=== PATIENT | male | born 1940 | race Hispanic/Latino ===

== ENCOUNTER 2016-09-04 11:35 | Inpatient (IN) | payer MEDICAID, MEDICARE ==
[2016-09-04] VITALS (7 sets, daily range): BP systolic 107–151; BP diastolic 46–97
[~2016-09-04] VITALS: Ht 165.1 cm; Wt 72.6 kg
[~2016-09-04 11:35] MED LIST: ACETAMINOPHEN650 M2 NGT; AMIODARONE HCL400 M1 GT; AMIODARONE50 MG/1 ML GT; ASCORBIC ACID500 M4 GT; BENADRYL25 M2 GT; CLONIDINE0.1 MG GT; COREG3.125 MG GT; DULCOLAX10 MG RECTAL; FOLIC ACID1 MG GT; LOSARTAN POTASS25 MG GT; MOM30 ML GT; NORCO 10-325 T1 EACH GT; NOVOLIN R100 UNIT/1 SUBQ; OMEPRAZOLE20 M2 GT; PROSCAR5 MG GT; PROTONIX20 MG GT; RISPERDAL0.5 MG GT; SIMVASTATIN10 MG GT; ZOCOR10 MG GT
[2016-09-04] MEDS ORDERED: DOCUSATE SODIU100 MG GT (11:43)
[2016-09-04] MEDS ORDERED: FAMOTIDINE20 MG GT (11:45)
[2016-09-04] MEDS ORDERED: TAPAZOLE10 MG GT (11:46)
[2016-09-04] MEDS ORDERED: VITAMIN C500 M1 GT (11:48)
[2016-09-04 12:20] LABS: BASOPHILS % (AUTO) 1.4 % (0.0-2.0); LYMPHOCYTES % (AUTO) 27.3 % (20.0-45.0); MEAN CORPUSCULAR HEMOGLOBIN 32.9 PG (27.0-31.0); MEAN CORPUSCULAR HGB CONC 31.3 G/DL (32.0-36.0); MEAN CORPUSCULAR VOLUME 105 FL (80-99); MEAN PLATELET VOLUME 9.8 FL (6.5-10.1); MONOCYTES % (AUTO) 5.1 % (1.0-10.0); NEUTROPHILS % (AUTO) 54.3 % (45.0-75.0); PLATELET COUNT 126 K/UL (150-450); RED BLOOD COUNT 4.53 M/UL (4.70-6.10); RED CELL DISTRIBUTION WIDTH 12.6 % (11.6-14.8); WHITE BLOOD COUNT 4.3 K/UL (4.8-10.8)
[2016-09-04 12:29] LABS: ALANINE AMINOTRANSFERASE 14 U/L (3-41); ANION GAP 11 (5-15); ASPARTATE AMINO TRANSFERASE 29 U/L (5-40); CALCIUM 9.2 mg/dL (8.6-10.2); CARBON DIOXIDE 29 mEQ/L (20-30); CHLORIDE 99 mEQ/L (98-107); CREATININE 1.1 mg/dL (0.7-1.2); HEMOLYSIS 8; POTASSIUM 4.4 mEQ/L (3.4-4.9); SODIUM 139 mEQ/L (135-145); TOTAL PROTEIN 8.1 g/dL (6.6-8.7); TROPONIN I < 0.30 ng/mL (<=0.30)
[2016-09-04 12:30] LABS: INR 1.1 (0.9-1.1); PROTHROMBIN TIME 10.7 SEC (9.30-11.50)
--- NOTE | 2016-09-04 12:46 | Diagnostic Imaging Report ---
Indications: Chest pain Technique: Portable AP chest Findings: Comparison: 07/23/14 Lung volumes remain mildly asymmetric, right greater than left. Bilateral interstitial prominence has decreased. Cardiac silhouette remains enlarged. Pulmonary vasculature within normal limits. Left costophrenic angle remains indistinct; right sharp. Aortic arch calcification again noted. Pacemaker has been placed and left chest wall, lead tips in the regions of right atrium and ventricle, respectively. IMPRESSION: Indistinctness of left costophrenic angle may simply be due to enlarged heart and suboptimal inspiration. Small pleural effusion not excludable. Otherwise no evidence of acute cardiopulmonary disease Interval pacemaker placement Aortosclerosis
--- NOTE | 2016-09-04 14:38 | Emergency Room Report ---
History of Present Illness General Chief Complaint: Chest Pain Source: Medical Record, EMS Present Illness HPI This patient presents from a [place] [facility]. He has a history of schizophrenia, kidney disease, hypertension, atrial fibrillation and bradycardia with pacemaker placement. Per report, he complained of chest pain this morning at the [facility]. However, when I assessed the patient he had no specific complaints. He seemed to not recall having chest pain. History is limited. Allergies: Coded Allergies: PENICILLINS (Verified Adverse Reaction, Intermediate, 07/23/14) Patient History Past Medical History: see triage record, DM, HTN, VA, CAD, AFib, CVA/TIA, dementia, psych hx, renal disease Past Surgical History: pacemaker, other - G-tube, Tracheostomy Social History: Denies: alcohol use, drug use, smoking Reviewed Nursing Documentation: PMH: Agreed, PSxH: Agreed Nursing Documentation-PMH Past Medical History: No History, Except For Hx Cardiac Problems: Yes Hx Hypertension: Yes Hx Pacemaker: Yes Hx Diabetes: Yes Hx Cancer: No Hx Dialysis: No - Renal failure Hx Neurological Problems: Yes - ENCEPHALOPATHY 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 Hx Dementia: Yes Review of Systems All Other Systems: negative except mentioned in HPI Physical Exam Vital Signs Date Time Temp Pulse Resp B/P Pulse Ox O2 Delivery O2 Flow Rate FiO2 09/04/16 11:31 98.4 60 18 140/60 97 Room Air Sp02 EP Interpretation: reviewed, normal General Appearance: no apparent distress, alert, GCS 15, non-toxic Head: normocephalic, atraumatic Eyes: bilateral eye PERRL, bilateral eye normal inspection ENT: hearing grossly normal, normal pharynx, no angioedema, normal voice Neck: full range of motion, supple/symm/no masses Respiratory: chest non-tender, lungs clear, normal breath sounds, speaking full sentences Cardiovascular #1: regular rate, rhythm, no edema Gastrointestinal: normal bowel sounds, non tender, soft, non-distended, no guarding, no rebound Rectal: deferred Musculoskeletal: back normal, gait/station normal, normal range of motion, non- tender Neurologic: alert, oriented x3, responsive, motor strength/tone normal, sensory intact, speech normal Psychiatric: judgement/insight normal, memory normal, mood/affect normal, no suicidal/homicidal ideation Skin: normal color, no rash, warm/dry, well hydrated Medical Decision Making Diagnostic Impression: Primary Impression: Chest pain ER Course This demented male is difficult to fully assess. Initial workup for acute coronary syndrome is negative. However, the patient only had about 20 minutes of chest pain. The patient is high risk for acute coronary syndrome. He will be admitted for further cardiac workup to rule out acute coronary syndrome. Labs Test 09/04/16 11:50 White Blood Count 4.3 K/UL (4.8-10.8) Red Blood Count 4.53 M/UL (4.70-6.10) Hemoglobin 14.9 G/DL (14.2-18.0) Hematocrit 47.5 % (42.0-52.0) Mean Corpuscular Volume 105 FL (80-99) Mean Corpuscular Hemoglobin 32.9 PG (27.0-31.0) Mean Corpuscular Hemoglobin Concent 31.3 G/DL (32.0-36.0) Red Cell Distribution Width 12.6 % (11.6-14.8) Platelet Count 126 K/UL (150-450) Mean Platelet Volume 9.8 FL (6.5-10.1) Neutrophils (%) (Auto) 54.3 % (45.0-75.0) Lymphocytes (%) (Auto) 27.3 % (20.0-45.0) Monocytes (%) (Auto) 5.1 % (1.0-10.0) Eosinophils (%) (Auto) 12.0 % (0.0-3.0) Basophils (%) (Auto) 1.4 % (0.0-2.0) Prothrombin Time 10.7 SEC (9.30-11.50) Prothromb Time International Ratio 1.1 (0.9-1.1) Activated Partial Thromboplast Time 27 SEC (23-33) Sodium Level 139 mEQ/L (135-145) Potassium Level 4.4 mEQ/L (3.4-4.9) Chloride Level 99 mEQ/L (98-107) Carbon Dioxide Level 29 mEQ/L (20-30) Anion Gap 11 (5-15) Blood Urea Nitrogen 21 mg/dL (7-23) Creatinine 1.1 mg/dL (0.7-1.2) Estimat Glomerular Filtration Rate mL/min (>60) Glucose Level 122 mg/dL (74-106) Calcium Level 9.2 mg/dL (8.6-10.2) Total Bilirubin 0.6 mg/dL (0.0-1.2) Aspartate Amino Transf (AST/SGOT) 29 U/L (5-40) Alanine Aminotransferase (ALT/SGPT) 14 U/L (3-41) Alkaline Phosphatase 66 U/L (40-129) Total Creatine Kinase 152 U/L (38-174) Creatine Kinase MB 3.0 ng/mL (< 6.7) Creatine Kinase MB Relative Index 1.9 Troponin I < 0.30 ng/mL (<=0.30) Total Protein 8.1 g/dL (6.6-8.7) Albumin 4.2 g/dL (3.5-5.2) Globulin 3.9 g/dL Albumin/Globulin Ratio 1.0 (1.0-2.7) EKG Diagnostic Results ST Segments: no acute changes Other Impression Atrial paced Rhythm Strip Diag. Results EP Interpretation: yes Rate: 60 Rhythm: no PVC's, no ectopy Other Impression Paced Chest X-Ray Diagnostic Results EP Interpretation: No Findings: other Number of Views: 1 Other Impression Indistinctness of left costophrenic angle may simply be due to enlarged heart and suboptimal inspiration. Small pleural effusion not excludable. Otherwise no evidence of acute cardiopulmonary disease Interval pacemaker placement Aortosclerosis Last Vital Signs Date Time Temp Pulse Resp B/P Pulse Ox O2 Delivery O2 Flow Rate FiO2 09/04/16 11:35 97.9 60 18 150/97 97 Room Air Disposition: ADMITTED INPATIENT Condition: Stable Referrals: JASMIN MEJIAS (PCP) RAMYA COOK D.O. Sep 04, 2016 14:38
[2016-09-04 17:00] LABS: APPEARANCE,URINE CLEAR; KETONES,URINE 1+ (NEGATIVE); LEUKOCYTE ESTERASE ,URINE 1+ (NEGATIVE); NITRITE,URINE NEGATIVE (NEGATIVE); PH,URINE 7 (4.5-8.0); PROTEIN,URINE NEGATIVE (NEGATIVE); UROBILINOGEN,URINE 4 MG/DL (0.0-1.0)
[2016-09-04 17:13] LABS: BACTERIA,URINE OCCASIONAL /HPF; MUCUS,URINE FEW /LPF (NONE/OCC); RBC,URINE 0-2 /HPF (0 - 0); SQUAMOUS EPITHELIAL CELL,UR OCCASIONAL /LPF (NONE/OCC)
--- NOTE | 2016-09-04 18:51 | Cardiac Electrophysiology PN ---
Subjective Subjective Seen in ER. DW daughter at bedside.[id number], [place] pacer by me in 2013 at [facility], PAF, HTN, PEG, Closed tracheostomy, Schizophrenia. Objective Last 24 Hour Vital Signs Date Time Temp Pulse Resp B/P Pulse Ox O2 Delivery O2 Flow Rate FiO2 09/04/16 17:45 98.0 60 16 127/85 96 Room Air 09/04/16 15:58 98.0 60 20 107/56 99 Room Air 09/04/16 13:30 98.0 60 19 107/76 96 Room Air 09/04/16 11:35 97.9 60 18 150/97 97 Room Air 09/04/16 11:35 60 16 Room Air 09/04/16 11:31 98.4 60 18 140/60 97 Room Air Laboratory Tests Test 09/04/16 11:50 09/04/16 16:40 White Blood Count 4.3 K/UL (4.8-10.8) L Red Blood Count 4.53 M/UL (4.70-6.10) L Hemoglobin 14.9 G/DL (14.2-18.0) Hematocrit 47.5 % (42.0-52.0) Mean Corpuscular Volume 105 FL (80-99) H Mean Corpuscular Hemoglobin 32.9 PG (27.0-31.0) H Mean Corpuscular Hemoglobin Concent 31.3 G/DL (32.0-36.0) L Red Cell Distribution Width 12.6 % (11.6-14.8) Platelet Count 126 K/UL (150-450) L Mean Platelet Volume 9.8 FL (6.5-10.1) Neutrophils (%) (Auto) 54.3 % (45.0-75.0) Lymphocytes (%) (Auto) 27.3 % (20.0-45.0) Monocytes (%) (Auto) 5.1 % (1.0-10.0) Eosinophils (%) (Auto) 12.0 % (0.0-3.0) H Basophils (%) (Auto) 1.4 % (0.0-2.0) Prothrombin Time 10.7 SEC (9.30-11.50) Prothromb Time International Ratio 1.1 (0.9-1.1) Activated Partial Thromboplast Time 27 SEC (23-33) Sodium Level 139 mEQ/L (135-145) Potassium Level 4.4 mEQ/L (3.4-4.9) Chloride Level 99 mEQ/L (98-107) Carbon Dioxide Level 29 mEQ/L (20-30) Anion Gap 11 (5-15) Blood Urea Nitrogen 21 mg/dL (7-23) Creatinine 1.1 mg/dL (0.7-1.2) Estimat Glomerular Filtration Rate mL/min (>60) Glucose Level 122 mg/dL (74-106) H Calcium Level 9.2 mg/dL (8.6-10.2) Total Bilirubin 0.6 mg/dL (0.0-1.2) Aspartate Amino Transf (AST/SGOT) 29 U/L (5-40) Alanine Aminotransferase (ALT/SGPT) 14 U/L (3-41) Alkaline Phosphatase 66 U/L (40-129) Total Creatine Kinase 152 U/L (38-174) Creatine Kinase MB 3.0 ng/mL (< 6.7) Creatine Kinase MB Relative Index 1.9 Troponin I < 0.30 ng/mL (<=0.30) Total Protein 8.1 g/dL (6.6-8.7) Albumin 4.2 g/dL (3.5-5.2) Globulin 3.9 g/dL Albumin/Globulin Ratio 1.0 (1.0-2.7) Urine Color Yellow Urine Appearance Clear Urine pH 7 (4.5-8.0) Urine Specific [place] 1.010 (1.005-1.035) Urine Protein Negative (NEGATIVE) Urine Glucose (UA) Negative (NEGATIVE) Urine Ketones 1+ (NEGATIVE) H Urine Occult Blood Negative (NEGATIVE) Urine Nitrite Negative (NEGATIVE) Urine Bilirubin Negative (NEGATIVE) Urine Urobilinogen 4 MG/DL (0.0-1.0) H Urine Leukocyte Esterase 1+ (NEGATIVE) H Urine RBC 0-2 /HPF (0 - 0) H Urine WBC 2-4 /HPF (0 - 0) Urine Squamous Epithelial Cells Occasional /LPF Urine Bacteria Occasional /HPF (NONE) Urine Mucus Few /LPF (NONE/OCC) H YARIEL SMITH Sep 04, 2016 18:51
[2016-09-04] MEDS ORDERED: DuoNeb 0.5-3(2.5)mg/3ml neb HHN PRN (19:00)
[2016-09-04] MEDS ORDERED: Ketorolac 30mg Inj IV PRN (19:00)
[2016-09-04] MEDS ORDERED: Morphine Sulfate 2mg/ml Inj IVP PRN (19:00)
[2016-09-04] MEDS ORDERED: Nitroglycerin Subl 0.4mg tab (Bottle Of 25) SL PRN (19:00)
[2016-09-04] MEDS ORDERED: Diltiazem 25mg/5ml IV PRN (19:00)
[2016-09-04] MEDS ORDERED: Miralax 17gm pkt ORAL PRN (19:00)
[2016-09-04] MEDS ORDERED: Enalaprilat 2.5mg/2ml Inj IV PRN (19:00)
[2016-09-04] MEDS ORDERED: NovoLOG Insulin Flexpen SUBQ SCH (21:00)
--- NOTE | 2016-09-04 22:48 | Consultation ---
DATE OF CONSULTATION: 09/04/2016 CARDIOLOGY CONSULTATION CONSULTING PHYSICIAN: Goldy Shine M.D. REFERRING PHYSICIAN: Ashley Ramos M.D. REASON FOR CONSULTATION: Management of the patient's pacemaker and management of hypertension. HISTORY OF PRESENT ILLNESS: The patient is a 76-year-old gentleman with history of hypertension, sick sinus syndrome, , and paroxysmal atrial fibrillation, so I implanted a dual chamber [employer] pacemaker in him in July 2014 at [facility]. The patient also history of dysphagia status post PEG placement and history of schizophrenia. The patient complained of chest pain the morning at the [facility] and was brought to the emergency for further evaluation. At the time of my evaluation, the patient was in the emergency room and his daughter is at the bedside. PAST MEDICAL HISTORY: Includes: 1. Hypertension. 2. Paroxysmal atrial fibrillation. 3. History of sick sinus syndrome status post dual-chamber pacemaker implantation by me. This is a [employer] Kevin device. 4. Schizophrenia. 5. Hyperlipidemia. 6. History of tracheostomy in the past that has been closed. SOCIAL HISTORY: He lives in group home. He does not smoke or drink alcohol. FAMILY HISTORY: Noncontributory. REVIEW OF SYSTEMS: Negative other what was mentioned in the history of present illness. PHYSICAL EXAMINATION: VITAL SIGNS: Blood pressure is 127/85, pulse is 60, respirations 16, and he is afebrile. NECK: Showed no JVD. LUNGS: Coarse rhonchi. CARDIOVASCULAR: Shows regular S1 and S2 with no gallop or murmur. The pacemaker in the left subclavian is intact. ABDOMEN: Status post G-tube. EXTREMITIES: Showed no pitting edema. LABORATORY DATA: His laboratory showed a white count of 4.3, hemoglobin of 14.9, hematocrit 47.5, and platelet count of 126,000. Sodium 139, potassium is 4.4, BUN of 21, creatinine 1.1, and glucose of 122. Troponin is negative x2. INR is 1.1. Urinalysis is negative. ASSESSMENT AND PLAN: 1. Chest pain. The pain is atypical. We will complete rule out myocardial infarction protocol. His EKG showed lateral T-wave inversion, but atrially paced rhythm. We will get an echocardiogram to rule out for ejection fraction and wall motion abnormality. 2. Status post [employer] Kevin pacemaker implantation by me. I will reinterrogate the pacemaker for further evaluation. 3. Paroxysmal atrial fibrillation. I will interrogate the pacemaker to find the burden of atrial fibrillation in regards to anticoagulation. His medication is from [facility]. The patient was on amiodarone, but was not on full anticoagulation. 4. Hypertension, on valsartan. 5. Hyperlipidemia, on Zocor. 6. Dysphagia status post percutaneous endoscopic gastrostomy placement. 7. History of tracheostomy that was subsequently closed. 8. Schizophrenia. Thank very much, Dr. Ramos, for allowing me to participate in the care of this patient. Please do not hesitate to contact me for any questions regarding my evaluation. Goldy Shine M.D. DR: ISA JOB#: [id number] CC:
[2016-09-04] MEDS: Heparin 5000 units/ml inj SUBQ SCH (23:17)
[2016-09-05 00:15] VITALS: BP 137/70
[2016-09-05] MEDS ORDERED: Ketorolac 30mg Inj IV PRN (02:00)
[2016-09-05] MEDS: Heparin 5000 units/ml inj SUBQ SCH ×3 (06:00→22:19)
[2016-09-05] MEDS: NovoLOG Insulin Flexpen SUBQ SCH ×4 (06:56→21:00)
[2016-09-05 07:30] VITALS: BP 140/56
[2016-09-05 07:57] VITALS: BP 144/76
--- NOTE | 2016-09-05 08:07 | Cardiac Electrophysiology PN ---
Assessment/Plan Assessment/Plan 1. Atypical Chest pain. Complete rule out myocardial infarction protocol. His EKG showed lateral T-wave inversion, and atrially paced rhythm. Echocardiogram and troponin this am pending. 2. Status post [employer] Kevin pacemaker implantation by me. I will reinterrogate the pacemaker today. 3. Paroxysmal atrial fibrillation. I will interrogate the pacemaker to find the burden of atrial fibrillation in regards to anticoagulation. Continue Amiodarone that he was on at [facility] but was not on anticoagulation. 4. Hypertension, on valsartan. 5. Hyperlipidemia, on Zocor. 6. Dysphagia status post percutaneous endoscopic gastrostomy placement. 7. History of tracheostomy that was subsequently closed. 8. Schizophrenia. DW RN Labs today all pending Subjective Subjective Feeling better. No chest pain. Awaiting pacer interrogation. No arrhythmias overnight. Objective Last 24 Hour Vital Signs Date Time Temp Pulse Resp B/P Pulse Ox O2 Delivery O2 Flow Rate FiO2 09/05/16 07:57 97.7 60 19 144/76 98 Room Air 09/05/16 07:30 140/56 09/05/16 04:00 60 09/05/16 03:30 98.4 60 18 132/75 100 Room Air 09/05/16 02:40 98.0 50 20 95 Room Air 09/05/16 00:15 98.4 60 18 137/70 100 Room Air 09/04/16 23:15 98.2 60 14 151/62 99 Room Air 09/04/16 22:41 98.0 60 13 132/74 100 Room Air 09/04/16 19:58 98.0 60 15 115/46 95 Room Air 09/04/16 17:45 98.0 60 16 127/85 96 Room Air 09/04/16 15:58 98.0 60 20 107/56 99 Room Air 09/04/16 13:30 98.0 60 19 107/76 96 Room Air 09/04/16 11:35 97.9 60 18 150/97 97 Room Air 09/04/16 11:35 60 16 Room Air 09/04/16 11:31 98.4 60 18 140/60 97 Room Air Intake and Output 09/04/16 09/05/16 19:00 07:00 Intake Total 0 ml Balance 0 ml Intake Oral 0 ml # Voids 1 1 Laboratory Tests Test 09/04/16 11:50 09/04/16 16:40 White Blood Count 4.3 K/UL (4.8-10.8) L Red Blood Count 4.53 M/UL (4.70-6.10) L Hemoglobin 14.9 G/DL (14.2-18.0) Hematocrit 47.5 % (42.0-52.0) Mean Corpuscular Volume 105 FL (80-99) H Mean Corpuscular Hemoglobin 32.9 PG (27.0-31.0) H Mean Corpuscular Hemoglobin Concent 31.3 G/DL (32.0-36.0) L Red Cell Distribution Width 12.6 % (11.6-14.8) Platelet Count 126 K/UL (150-450) L Mean Platelet Volume 9.8 FL (6.5-10.1) Neutrophils (%) (Auto) 54.3 % (45.0-75.0) Lymphocytes (%) (Auto) 27.3 % (20.0-45.0) Monocytes (%) (Auto) 5.1 % (1.0-10.0) Eosinophils (%) (Auto) 12.0 % (0.0-3.0) H Basophils (%) (Auto) 1.4 % (0.0-2.0) Prothrombin Time 10.7 SEC (9.30-11.50) Prothromb Time International Ratio 1.1 (0.9-1.1) Activated Partial Thromboplast Time 27 SEC (23-33) Sodium Level 139 mEQ/L (135-145) Potassium Level 4.4 mEQ/L (3.4-4.9) Chloride Level 99 mEQ/L (98-107) Carbon Dioxide Level 29 mEQ/L (20-30) Anion Gap 11 (5-15) Blood Urea Nitrogen 21 mg/dL (7-23) Creatinine 1.1 mg/dL (0.7-1.2) Estimat Glomerular Filtration Rate mL/min (>60) Glucose Level 122 mg/dL (74-106) H Calcium Level 9.2 mg/dL (8.6-10.2) Total Bilirubin 0.6 mg/dL (0.0-1.2) Aspartate Amino Transf (AST/SGOT) 29 U/L (5-40) Alanine Aminotransferase (ALT/SGPT) 14 U/L (3-41) Alkaline Phosphatase 66 U/L (40-129) Total Creatine Kinase 152 U/L (38-174) Creatine Kinase MB 3.0 ng/mL (< 6.7) Creatine Kinase MB Relative Index 1.9 Troponin I < 0.30 ng/mL (<=0.30) Total Protein 8.1 g/dL (6.6-8.7) Albumin 4.2 g/dL (3.5-5.2) Globulin 3.9 g/dL Albumin/Globulin Ratio 1.0 (1.0-2.7) Urine Color Yellow Urine Appearance Clear Urine pH 7 (4.5-8.0) Urine Specific [place] 1.010 (1.005-1.035) Urine Protein Negative (NEGATIVE) Urine Glucose (UA) Negative (NEGATIVE) Urine Ketones 1+ (NEGATIVE) H Urine Occult Blood Negative (NEGATIVE) Urine Nitrite Negative (NEGATIVE) Urine Bilirubin Negative (NEGATIVE) Urine Urobilinogen 4 MG/DL (0.0-1.0) H Urine Leukocyte Esterase 1+ (NEGATIVE) H Urine RBC 0-2 /HPF (0 - 0) H Urine WBC 2-4 /HPF (0 - 0) Urine Squamous Epithelial Cells Occasional /LPF Urine Bacteria Occasional /HPF (NONE) Urine Mucus Few /LPF (NONE/OCC) H Objective NECK: Showed no JVD. LUNGS: Coarse rhonchi. CARDIOVASCULAR: Shows regular S1 and S2 with no gallop or murmur.The pacemaker in the left subclavian is intact. ABDOMEN: Status post G-tube. EXTREMITIES: Showed no pitting edema. YARIEL SMITH Sep 05, 2016 08:07
[2016-09-05 08:25] LABS: ANION GAP 12 (5-15); CARBON DIOXIDE 26 mEQ/L (20-30); CHLORIDE 103 mEQ/L (98-107); HEMOLYSIS 6; POTASSIUM 4.4 mEQ/L (3.4-4.9); SODIUM 141 mEQ/L (135-145)
[2016-09-05 08:32] LABS: BASOPHILS % (AUTO) 1.2 % (0.0-2.0); EOSINOPHILS % (AUTO) 8.6 % (0.0-3.0); LYMPHOCYTES % (AUTO) 18.7 % (20.0-45.0); MEAN CORPUSCULAR HEMOGLOBIN 33.6 PG (27.0-31.0); MEAN CORPUSCULAR HGB CONC 33.7 G/DL (32.0-36.0); MEAN CORPUSCULAR VOLUME 100 FL (80-99); MEAN PLATELET VOLUME 11.5 FL (6.5-10.1); MONOCYTES % (AUTO) 5.8 % (1.0-10.0); NEUTROPHILS % (AUTO) 65.7 % (45.0-75.0); PLATELET COUNT 121 K/UL (150-450); RED BLOOD COUNT 4.36 M/UL (4.70-6.10); RED CELL DISTRIBUTION WIDTH 12.2 % (11.6-14.8); WHITE BLOOD COUNT 4.1 K/UL (4.8-10.8)
[2016-09-05 08:40] LABS: INR 1.1 (0.9-1.1); PROTHROMBIN TIME 11.5 SEC (9.30-11.50); TROPONIN I < 0.30 ng/mL (<=0.30)
[2016-09-05 08:45] LABS: CHOLESTEROL/HDL RATIO 3.9 (3.3-4.4); CRP QUANT 0.6 mg/dL (< 0.5)
[2016-09-05 08:46] LABS: THYROID STIMULATING HORMONE 52.46 uIU/mL (0.300-4.500)
[2016-09-05 08:51] LABS: CKMB 10.4 ng/mL (< 6.7)
[2016-09-05] MEDS: Losartan 25mg tab ORAL SCH (09:22)
[2016-09-05] MEDS: Aspirin Baby 81mg ORAL SCH (09:22)
[2016-09-05] MEDS: Methimazole 5mg tab GT SCH (09:22)
[2016-09-05] MEDS: Amiodarone 200mg tab ORAL SCH (09:23)
[2016-09-05 11:28] VITALS: BP 136/87
--- NOTE | 2016-09-05 13:37 | History and Physical ---
History of Present Illness General Date patient seen: Sep 05, 2016 Reason for Hospitalization: Chest Pain Present Illness HPI 76 year old male patient with PMHx of CVA, bipolar, pacemaker BIBA from a group home facility with complains of chest pain this yesterday. Patient was asymptomatic in ER but because of history of CAD and pacemaker, he is admitted to Telemetry for further work up.Patient is poor historian and can't give much of a history. Allergies: Coded Allergies: PENICILLINS (Verified Adverse Reaction, Intermediate, 07/23/14) Medication History Scheduled Amiodarone Hcl (Amiodarone Hcl*), 200 MG GT DAILY, (Reported) Ascorbic Acid* (Ascorbic Acid*), 500 MG GT DAILY, (Reported) Ascorbic Acid* (Vitamin C*), 500 MG GT DAILY, (Reported) Carvedilol (Coreg), 3.125 MG GT DAILY, (Reported) Docusate Sodium* (Docusate Sodium*), 100 MG GT DAILY, (Reported) Famotidine (Famotidine), 20 MG GT BEDTIME, (Reported) Finasteride* (Proscar*), 5 MG GT DAILY, (Reported) Folic Acid* (Folic Acid*), 1 MG GT DAILY, (Reported) Insulin Regular, Human* (Novolin R*), 0 SUBQ AC, (Reported) Losartan Potassium* (Losartan Potassium*), 25 MG GT DAILY, (Reported) Methimazole (Methimazole), 10 MG GT DAILY, (Reported) Omeprazole (Omeprazole), 20 MG GT ACBREAKFAST, (Reported) Pantoprazole Sodium (Protonix), 20 MG GT DAILY, (Reported) Risperidone* (Risperdal*), 0.5 MG GT DAILY, (Reported) Simvastatin (Zocor), 10 MG GT BEDTIME, (Reported) Simvastatin (Zocor), 10 MG GT BEDTIME, (Reported) Scheduled PRN Acetaminophen (Acetaminophen 8 Hour), 650 MG NGT EVERY 4 HOURS PRN, (Reported) Bisacodyl (Dulcolax), 10 MG RECTAL DAILY PRN, (Reported) Clonidine HCl (Clonidine HCl), 0.1 MG GT EVERY 6 HOURS PRN, (Reported) Diphenhydramine Hcl (Benadryl), 50 MG GT EVERY 6 HOURS PRN, (Reported) Hydrocodone Bit/Acetaminophen 10-325* ([place] 10-325*), 1 TAB GT EVERY 4 HOURS PRN, (Reported) Magnesium Hydroxide (Milk of Magnesia), 30 ML GT EVERY HS PRN, (Reported) Patient History Healthcare decision maker Resuscitation status Full Code Advanced Directive on File Past Medical/Surgical History Past Medical/Surgical History: (1) g tube replacement (2) History of CVA (cerebrovascular accident) (3) HTN (hypertension) (4) Pacemaker Review of Systems All Other Systems: negative except mentioned in HPI Physical Exam Lines, tubes and drains: peripheral, central line HEENT: normocephalic, atraumatic Neck: non-tender, normal alignment Respiratory/Chest: chest wall non-tender, lungs clear Breasts: no masses Cardiovascular/Chest: normal peripheral pulses, normal rate Abdomen: normal bowel sounds, non tender, hyperactive bowel sounds Genitourinary/Rectal: normal rectal exam Extremities: normal range of motion, non-tender Skin Exam: normal pigmentation 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, no motor/sensory deficits Last 24 Hour Vital Signs Date Time Temp Pulse Resp B/P Pulse Ox O2 Delivery O2 Flow Rate FiO2 09/05/16 11:28 96.8 61 19 136/87 99 Room Air 09/05/16 09:23 60 144/76 09/05/16 09:22 144/76 09/05/16 07:57 97.7 60 19 144/76 98 Room Air 09/05/16 07:30 140/56 09/05/16 07:00 60 18 Room Air 21 09/05/16 04:00 60 09/05/16 03:30 98.4 60 18 132/75 100 Room Air 09/05/16 02:40 98.0 50 20 95 Room Air 09/05/16 00:15 98.4 60 18 137/70 100 Room Air 09/04/16 23:15 98.2 60 14 151/62 99 Room Air 09/04/16 22:41 98.0 60 13 132/74 100 Room Air 09/04/16 19:58 98.0 60 15 115/46 95 Room Air 09/04/16 17:45 98.0 60 16 127/85 96 Room Air 09/04/16 15:58 98.0 60 20 107/56 99 Room Air Intake and Output 09/04/16 09/05/16 19:00 07:00 Intake Total 0 ml Balance 0 ml Intake Oral 0 ml # Voids 1 1 Laboratory Tests Test 09/04/16 16:40 09/05/16 07:10 Urine Color Yellow Urine Appearance Clear Urine pH 7 (4.5-8.0) Urine Specific Friona 1.010 (1.005-1.035) Urine Protein Negative (NEGATIVE) Urine Glucose (UA) Negative (NEGATIVE) Urine Ketones 1+ (NEGATIVE) H Urine Occult Blood Negative (NEGATIVE) Urine Nitrite Negative (NEGATIVE) Urine Bilirubin Negative (NEGATIVE) Urine Urobilinogen 4 MG/DL (0.0-1.0) H Urine Leukocyte Esterase 1+ (NEGATIVE) H Urine RBC 0-2 /HPF (0 - 0) H Urine WBC 2-4 /HPF (0 - 0) Urine Squamous Epithelial Cells Occasional /LPF Urine Bacteria Occasional /HPF (NONE) Urine Mucus Few /LPF (NONE/OCC) H White Blood Count 4.1 K/UL (4.8-10.8) L Red Blood Count 4.36 M/UL (4.70-6.10) L Hemoglobin 14.6 G/DL (14.2-18.0) Hematocrit 43.4 % (42.0-52.0) Mean Corpuscular Volume 100 FL (80-99) H Mean Corpuscular Hemoglobin 33.6 PG (27.0-31.0) H Mean Corpuscular Hemoglobin Concent 33.7 G/DL (32.0-36.0) Red Cell Distribution Width 12.2 % (11.6-14.8) Platelet Count 121 K/UL (150-450) L Mean Platelet Volume 11.5 FL (6.5-10.1) H Neutrophils (%) (Auto) 65.7 % (45.0-75.0) Lymphocytes (%) (Auto) 18.7 % (20.0-45.0) L Monocytes (%) (Auto) 5.8 % (1.0-10.0) Eosinophils (%) (Auto) 8.6 % (0.0-3.0) H Basophils (%) (Auto) 1.2 % (0.0-2.0) Prothrombin Time 11.5 SEC (9.30-11.50) Prothromb Time International Ratio 1.1 (0.9-1.1) Activated Partial Thromboplast Time 31 SEC (23-33) Sodium Level 141 mEQ/L (135-145) Potassium Level 4.4 mEQ/L (3.4-4.9) Chloride Level 103 mEQ/L (98-107) Carbon Dioxide Level 26 mEQ/L (20-30) Anion Gap 12 (5-15) Blood Urea Nitrogen 20 mg/dL (7-23) Creatinine 1.0 mg/dL (0.7-1.2) Estimat Glomerular Filtration Rate mL/min (>60) Glucose Level 106 mg/dL (74-106) Calcium Level 9.0 mg/dL (8.6-10.2) Total Creatine Kinase 1397 U/L (38-174) H Creatine Kinase MB 10.4 ng/mL (< 6.7) H Creatine Kinase MB Relative Index 0.7 Troponin I < 0.30 ng/mL (<=0.30) C-Reactive Protein, Quantitative 0.6 mg/dL (< 0.5) H Pro-B-Type Natriuretic Peptide 124 pg/mL (0-450) Triglycerides Level 124 mg/dL (< 150) Cholesterol Level 116 mg/dL (< 200) LDL Cholesterol 61 mg/dL (60-99) HDL Cholesterol 30 mg/dL (> 60) Cholesterol/HDL Ratio 3.9 (3.3-4.4) Thyroid Stimulating Hormone (TSH) 52.460 uIU/mL (0.300-4.500) Height (Feet): 5 Height (Inches): 5.00 Weight (Pounds): 160 Medications Current Medications Medications (Trade) Dose Ordered Sig/Dominguez Route PRN Reason Start Time Stop Time Status Last Admin Dose Admin Acetaminophen (Tylenol) 650 mg Q4H PRN ORAL FEVER 09/04/16 19:00 10/04/16 18:59 Albuterol/ Ipratropium (DuoNeb 0.5-3(2.5)mg/3ml) 3 ml EVERY 4 HOURS PRN HHN Shortness of Breath 09/04/16 19:00 09/09/16 18:59 Amiodarone HCl (Cordarone) 200 mg DAILY ORAL 09/05/16 09:00 10/05/16 08:59 09/05/16 09:23 Aspirin (ASA) 162 mg DAILY ORAL 09/05/16 09:00 10/05/16 08:59 09/05/16 09:22 Carvedilol (Coreg) 3.125 mg BID GT 09/05/16 09:00 10/05/16 08:59 09/05/16 09:23 Dextrose (Dextrose 50%) STAT PRN IV Hypoglycemia 09/04/16 19:00 10/04/16 18:59 09/05/16 03:09 Diltiazem HCl (Cardizem) 10 mg Q1H PRN IV heart rate more than 120, 09/04/16 19:00 10/04/16 18:59 Enalaprilat (Vasotec) 2.5 mg Q6H PRN IV sbp more than 160 09/04/16 19:00 10/04/16 18:59 Finasteride (Proscar) 5 mg DAILY GT 09/05/16 09:00 10/05/16 08:59 09/05/16 09:22 Heparin Sodium (Porcine) (Heparin 5000 units/ml) 5,000 units EVERY 8 HOURS SUBQ 09/04/16 22:00 10/04/16 21:59 09/04/16 23:17 Insulin Aspart (NovoLOG) BEFORE MEALS AND HS SUBQ 09/05/16 06:30 10/05/16 06:29 09/05/16 06:56 Losartan Potassium (Cozaar) 25 mg DAILY ORAL 09/05/16 09:00 10/05/16 08:59 09/05/16 09:22 Methimazole (Tapazole) 10 mg DAILY GT 09/05/16 09:00 10/05/16 08:59 09/05/16 09:22 Morphine Sulfate (Morphine Sulfate) 2 mg EVERY 4 HOURS PRN IVP severe Pain (Pain Scale 7-10) 09/04/16 19:00 09/11/16 18:59 Nitroglycerin (Ntg) 0.4 mg Q5M PRN SL Prn Chest Pain 09/04/16 19:00 10/04/16 18:59 Ondansetron HCl (Zofran) 4 mg Q6H PRN IVP Nausea & Vomiting 09/04/16 19:00 10/04/16 18:59 Pantoprazole (Protonix) 40 mg DAILY ORAL 09/05/16 09:00 10/05/16 08:59 09/05/16 09:22 Polyethylene Glycol (Miralax) 17 gm DAILYPRN PRN ORAL Constipation 09/04/16 19:00 10/04/16 18:59 Temazepam (Restoril) 15 mg HSPRN PRN ORAL Insomnia 09/04/16 19:00 09/11/16 18:59 Assessment/Plan Problem List: (1) ACS (acute coronary syndrome) ICD Codes: I24.9 - Acute ischemic heart disease, unspecified SNOMED: 923368930 (2) HTN (hypertension) ICD Codes: I10 - Essential (primary) hypertension SNOMED: 75992176 (3) Pacemaker ICD Codes: Z95.0 - Presence of cardiac pacemaker SNOMED: 389204239, 958764955 (4) History of CVA (cerebrovascular accident) ICD Codes: Z86.73 - Personal history of transient ischemic attack (TIA), and cerebral infarction without residual deficits SNOMED: 785074810 (5) g tube replacement Assessment/Plan serial ekg, troponin, echo doppler of leg gtube site care frequent turning in bed monitor bp Pacemaker check-up CARMELO REDMAN Sep 05, 2016 13:37
[2016-09-05 16:00] VITALS: BP 142/74
[2016-09-05 18:38] LABS: TROPONIN I < 0.30 ng/mL (<=0.30)
[2016-09-05 20:00] VITALS: BP 131/75
--- NOTE | 2016-09-05 23:57 | History and Physical Report ---
DATE OF ADMISSION: 09/04/[address] Jose Francisco Parsons. I am covering Dr. Jose Francisco Parsons. History Of Present Illness: The patient is admitted for chest pain rule out acute coronary syndrome. The patient has been having chest pain. The patient also has a history of schizophrenia and acute kidney disease as well one day. 00:31. Denies nausea, vomiting, or diarrhea. No fever or chills. The patient is relatively poor historian. PAST MEDICAL HISTORY: Significant for hypertension, dementia, psychosis, NIDDM, history of MN, CAD, atrial fibrillation, CVA, psychosis, chronic renal insufficiency, constipation, as well as GERD as well as and hyperlipidemia. PAST SURGICAL HISTORY: The patient G-tube tracheostomy. MEDICATIONS: Vitamin C, amiodarone, bisacodyl, clonidine, Colace, famotidine, finasteride, folic acid, insulin, Cozaar, magnesium, omeprazole, risperidone, and simvastatin. ALLERGIES: Penicillin. SOCIAL HISTORY: Cannot obtain a reliable history. FAMILY HISTORY: Noncontributory. REVIEW OF SYSTEMS: HEENT: Denies headache. Respiratory: Denies shortness of breath. Denies cough. Cardiovascular: Denies chest pain. GI: Denies nausea, vomiting, or diarrhea. Extremities: Denies pain. DIRECTOR: Denies change in vision or speech pattern. However, he is a poor historian. PHYSICAL EXAMINATION: VITAL SIGNS: Temperature 97.7 degrees, pulse 60, and blood pressure 144/76. HEENT: PERRLA. NECK: Supple. No lymphadenopathy. CHEST: Clear to auscultation. CARDIOVASCULAR: Regular rate and rhythm. GASTROINTESTINAL: Soft, nontender, and nondistended. No organomegaly. EXTREMITIES: No edema. Moves all four extremities. LABORATORY AND DIAGNOSTIC DATA: WBC 4.3, hemoglobin 14.9, and platelet 126,000. Sodium 139, potassium 4.4, BUN 21, creatinine 1.1, and glucose of 122. ASSESSMENT AND PLAN: The patient has chest pain rule out acute coronary syndrome. PLAN: I have asked Dr. Shine as well as Dr. Casey to see the patient for chest pain rule out acute coronary syndrome. Ali Laney Ramos DR: Ezequiel JOB#: [id number] CC:
[2016-09-06 00:25] VITALS: BP_SYST 110; BP_SYST 175; BP_DIAS 55; BP_DIAS 95
[2016-09-06 04:23] VITALS: BP 129/63
[2016-09-06] MEDS: Heparin 5000 units/ml inj SUBQ SCH ×3 (06:00→21:46)
[2016-09-06] MEDS: NovoLOG Insulin Flexpen SUBQ SCH ×4 (06:19→21:00)
[2016-09-06 07:25] LABS: TROPONIN I < 0.30 ng/mL (<=0.30)
[2016-09-06 08:00] VITALS: BP 149/75
[2016-09-06] MEDS: Methimazole 5mg tab GT SCH (10:11)
[2016-09-06] MEDS: Losartan 25mg tab ORAL SCH (10:12)
[2016-09-06] MEDS: Amiodarone 200mg tab ORAL SCH (10:12)
[2016-09-06] MEDS: Aspirin Baby 81mg ORAL SCH (10:12)
--- NOTE | 2016-09-06 11:32 | Cardiac Electrophysiology PN ---
Assessment/Plan Assessment/Plan 1. Atypical Chest pain. Ruled out for myocardial infarction . His EKG showed lateral T-wave inversion, and atrially paced rhythm. 2. Status post [employer] pacemaker implantation by me that was interrogated and showed nl function. 3. Paroxysmal atrial fibrillation. Continue Amiodarone, Coreg 3.125 bid and Ecotrin. 4. Hypertension, on Cozaar 25 and Coreg 5. Hyperlipidemia, resume Zocor. 6. Dysphagia status post percutaneous endoscopic gastrostomy placement. 7. History of tracheostomy that was subsequently closed. 8. Schizophrenia. CHAR RN Subjective Subjective Feeling better. No chest pain.SJ Pacer interrogation showed NL function.. No arrhythmias overnight. Objective Last 24 Hour Vital Signs Date Time Temp Pulse Resp B/P Pulse Ox O2 Delivery O2 Flow Rate FiO2 09/06/16 10:12 149/75 09/06/16 10:12 60 149/75 09/06/16 08:00 98.4 60 18 149/75 97 Room Air 09/06/16 07:32 64 20 Room Air 09/06/16 04:23 97.8 61 19 129/63 94 Room Air 09/06/16 03:53 60 09/06/16 00:25 98.6 60 20 110/55 98 Room Air 09/06/16 00:25 60 09/05/16 20:00 97.5 61 20 131/75 95 Room Air 09/05/16 20:00 60 09/05/16 19:28 60 18 Room Air 21 09/05/16 18:34 61 142/74 09/05/16 16:00 97.9 61 20 142/74 96 Room Air 09/05/16 16:00 60 09/05/16 12:00 60 09/05/16 11:28 96.8 61 19 136/87 99 Room Air Intake and Output 09/05/16 09/06/16 19:00 07:00 Intake Total 270 ml Balance 270 ml Intake Oral 270 ml # Voids 1 2 Laboratory Tests Test 09/05/16 18:05 09/06/16 06:30 Troponin I < 0.30 ng/mL (<=0.30) < 0.30 ng/mL (<=0.30) Objective NECK: Showed no JVD. LUNGS: Coarse rhonchi. CARDIOVASCULAR: Shows regular S1 and S2 with no gallop or murmur.The pacemaker in the left subclavian is intact. ABDOMEN: Status post G-tube. EXTREMITIES: Showed no pitting edema. YARIEL SMITH Sep 06, 2016 11:32
[2016-09-06 12:00] VITALS: BP 142/72
--- NOTE | 2016-09-06 12:16 | General Progress Note ---
Assessment/Plan Problem List: (1) Chest pain ICD Codes: R07.9 - Chest pain, unspecified SNOMED: 12063080 (2) ACS (acute coronary syndrome) ICD Codes: I24.9 - Acute ischemic heart disease, unspecified SNOMED: 197045579 Status: progressing Assessment/Plan afebrile no cp clinically improving r/o acs\ dr avila patient he will take over tomrrow Subjective ROS Limited/Unobtainable: Yes Allergies: Coded Allergies: PENICILLINS (Verified Adverse Reaction, Intermediate, 07/23/14) Objective Last 24 Hour Vital Signs Date Time Temp Pulse Resp B/P Pulse Ox O2 Delivery O2 Flow Rate FiO2 09/06/16 10:12 149/75 09/06/16 10:12 60 149/75 09/06/16 08:00 98.4 60 18 149/75 97 Room Air 09/06/16 07:32 64 20 Room Air 09/06/16 04:23 97.8 61 19 129/63 94 Room Air 09/06/16 03:53 60 09/06/16 00:25 98.6 60 20 110/55 98 Room Air 09/06/16 00:25 60 09/05/16 20:00 97.5 61 20 131/75 95 Room Air 09/05/16 20:00 60 09/05/16 19:28 60 18 Room Air 21 09/05/16 18:34 61 142/74 09/05/16 16:00 97.9 61 20 142/74 96 Room Air 09/05/16 16:00 60 Intake and Output 09/05/16 09/06/16 19:00 07:00 Intake Total 270 ml Balance 270 ml Intake Oral 270 ml # Voids 1 2 Laboratory Tests 09/05/16 18:05: Troponin I < 0.30 09/06/16 06:30: Troponin I < 0.30 Height (Feet): 5 Height (Inches): 5.00 Weight (Pounds): 160 EENT: PERRL/EOMI Cardiovascular: normal rate Respiratory/Chest: lungs clear Ashley Ramos MD Sep 06, 2016 12:16
--- NOTE | 2016-09-06 13:15 | Pulmonology Progress Note ---
Assessment/Plan Assessment/Plan ASSESSMENT atypical chest pain ACS was ruled out - HTN PAF pacemaker CAD Hx of CVA bipolar disorder Dysphagia, G tube Hyperlipidemia Hx of trach, s/p closure DM hyperthyroidism with elevated TSH PLAN OF CARE tele serial troponin negative, ECG -A pacing, + lateral TWI, cardio r/o for acute NH per cardio CP atypical ECHO Lipid panel WNL , continue statin Venous Duplex with recanalized chronic thrombus LLE SFV, no acute DVT pacemaker interrogation done, normal funtion CXR no acute cardiopulmonary disease, + cardiomegaly O2 HHn prn strict aspiration precautions, GT feeding, monitor tolerance PAF management with Amiodarone, BB BP management with ARB and BB elevated TSH ( likely 2 to Amiodarone), hx of hyperthyroidism, decrease Tapazole recheck thyroid panel in 3-4 weeks DVT, GI prophylaxis case discussed and evaluated by supervising physician Subjective Allergies: Coded Allergies: PENICILLINS (Verified Adverse Reaction, Intermediate, 07/23/14) Subjective improving clinically denies chest pain, SOB, palpitations no arrhythmia overnight Objective Last 24 Hour Vital Signs Date Time Temp Pulse Resp B/P Pulse Ox O2 Delivery O2 Flow Rate FiO2 09/06/16 10:12 149/75 09/06/16 10:12 60 149/75 09/06/16 08:00 98.4 60 18 149/75 97 Room Air 09/06/16 07:32 64 20 Room Air 09/06/16 04:23 97.8 61 19 129/63 94 Room Air 09/06/16 03:53 60 09/06/16 00:25 98.6 60 20 110/55 98 Room Air 09/06/16 00:25 60 09/05/16 20:00 97.5 61 20 131/75 95 Room Air 09/05/16 20:00 60 09/05/16 19:28 60 18 Room Air 21 09/05/16 18:34 61 142/74 09/05/16 16:00 97.9 61 20 142/74 96 Room Air 09/05/16 16:00 60 Intake and Output 09/05/16 09/06/16 18:59 06:59 Intake Total 270 ml Balance 270 ml Intake Oral 270 ml # Voids 1 2 General Appearance: WD/WN, no acute distress, other - awake, responsive HEENT: normocephalic, atraumatic, mucous membranes moist, EOMI, no JVD Respiratory/Chest: chest wall non-tender, no respiratory distress, no accessory muscle use, rhonchi - few isolated rhonchi , other - left chest pacemaker, intact Cardiovascular: other - on tele - A pacing Extremities: no edema, pedal pulses normal Neurologic/Psychiatric: alert, responsive Musculoskeletal: normal muscle bulk Microbiology Date/Time Source Procedure Growth Status 09/05/16 03:30 Nasal Nares MRSA Culture - Final NO METHICILLIN RESISTANT STAPH AUREUS... Complete Laboratory Tests 09/05/16 18:05: Troponin I < 0.30 09/06/16 06:30: Troponin I < 0.30 Current Medications Medications (Trade) Dose Ordered Sig/Dominguez Route PRN Reason Start Time Stop Time Status Last Admin Dose Admin Acetaminophen (Tylenol) 650 mg Q4H PRN ORAL FEVER 09/04/16 19:00 10/04/16 18:59 Albuterol/ Ipratropium (DuoNeb 0.5-3(2.5)mg/3ml) 3 ml EVERY 4 HOURS PRN HHN Shortness of Breath 09/04/16 19:00 09/09/16 18:59 Amiodarone HCl (Cordarone) 200 mg DAILY ORAL 09/05/16 09:00 10/05/16 08:59 09/06/16 10:12 Aspirin (ASA) 162 mg DAILY ORAL 09/05/16 09:00 10/05/16 08:59 09/06/16 10:12 Carvedilol (Coreg) 3.125 mg BID GT 09/05/16 09:00 10/05/16 08:59 09/06/16 10:12 Dextrose (Dextrose 50%) STAT PRN IV Hypoglycemia 09/04/16 19:00 10/04/16 18:59 09/05/16 03:09 Diltiazem HCl (Cardizem) 10 mg Q1H PRN IV heart rate more than 120, 09/04/16 19:00 10/04/16 18:59 Enalaprilat (Vasotec) 2.5 mg Q6H PRN IV sbp more than 160 09/04/16 19:00 10/04/16 18:59 Finasteride (Proscar) 5 mg DAILY GT 09/05/16 09:00 10/05/16 08:59 1/7/17 10:12 Heparin Sodium (Porcine) (Heparin 5000 units/ml) 5,000 units EVERY 8 HOURS SUBQ 09/04/16 22:00 10/04/16 21:59 09/06/16 12:54 Insulin Aspart (NovoLOG) BEFORE MEALS AND HS SUBQ 09/05/16 06:30 10/05/16 06:29 09/05/16 06:56 Losartan Potassium (Cozaar) 25 mg DAILY ORAL 09/05/16 09:00 10/05/16 08:59 09/06/16 10:12 Methimazole (Tapazole) 10 mg DAILY GT 09/05/16 09:00 10/05/16 08:59 09/06/16 10:11 Morphine Sulfate (Morphine Sulfate) 2 mg EVERY 4 HOURS PRN IVP severe Pain (Pain Scale 7-10) 09/04/16 19:00 09/11/16 18:59 Nitroglycerin (Ntg) 0.4 mg Q5M PRN SL Prn Chest Pain 09/04/16 19:00 10/04/16 18:59 Ondansetron HCl (Zofran) 4 mg Q6H PRN IVP Nausea & Vomiting 09/04/16 19:00 10/04/16 18:59 Pantoprazole (Protonix) 40 mg DAILY ORAL 09/05/16 09:00 10/05/16 08:59 09/06/16 10:12 Polyethylene Glycol (Miralax) 17 gm DAILYPRN PRN ORAL Constipation 09/04/16 19:00 10/04/16 18:59 Temazepam (Restoril) 15 mg HSPRN PRN ORAL Insomnia 09/04/16 19:00 09/11/16 18:59 Frankie (Rosangelamaxine)Juani NP Sep 06, 2016 13:15
--- NOTE | 2016-09-06 13:53 | Cardiology Report ---
APPROVED REPORT EXAM: Two-dimensional and M-mode echocardiogram with Doppler and color Doppler. INDICATION Left Ventricular function M-Mode DIMENSIONS IVSd2.3 (0.7-1.1cm)Left Atrium (MM)4.2 (1.6-4.0cm) LVDd3.0 (3.5-5.6cm)Aortic Root3.1 (2.0-3.7cm) PWd1.2 (0.7-1.1cm)Aortic Cusp Exc.2.0 (1.5-2.0cm) LVDs2.6 (2.5-4.0cm) PWs1.1 cm Normal left ventricular chamber size, systolic function and wall motion. Left ventricular ejection fraction estimated to be 60-65%. Mild left ventricular hypertrophy. No evidence of pericardial effusion. All other cardiac chamber sizes are within normal limits. Mild focal aortic valve sclerosis with adequate cusp excursion. Mildly thickened mitral valve leaflets with normal excursion. Mild mitral annulus and aortic root calcification. Pulmonic valve visualized. Normal tricuspid valve structure. IVC at normal size with physiologic collapse. A color flow and spectral Doppler study was performed and revealed: Trace to mild aortic regurgitation. Mild mitral regurgitation. Mitral diastolic velocities suggest reduced left ventricular relaxation (Grade I). Trace tricuspid regurgitation. Tricuspid systolic velocities suggests peak right ventricular systolic pressure of 11 mmHg.
[2016-09-06 16:00] VITALS: BP 131/95
[2016-09-06 20:00] VITALS: BP 112/60
[2016-09-07] VITALS: BP 116/64
[2016-09-07 04:00] VITALS: BP 119/56
[2016-09-07] MEDS: Heparin 5000 units/ml inj SUBQ SCH ×3 (05:43→21:45)
[2016-09-07] MEDS: NovoLOG Insulin Flexpen SUBQ SCH ×4 (05:43→21:00)
[2016-09-07 08:00] VITALS: BP 135/72
[2016-09-07] MEDS: Methimazole 5mg tab GT SCH (09:37)
[2016-09-07] MEDS: Losartan 25mg tab ORAL SCH (09:37)
[2016-09-07] MEDS: Aspirin Baby 81mg ORAL SCH (09:38)
[2016-09-07] MEDS: Amiodarone 200mg tab ORAL SCH (09:38)
--- NOTE | 2016-09-07 10:07 | Pulmonology Progress Note ---
Assessment/Plan Assessment/Plan ASSESSMENT atypical chest pain ACS was ruled out - HTN PAF pacemaker CAD Hx of CVA bipolar disorder Dysphagia, G tube Hyperlipidemia Hx of trach, s/p closure DM hyperthyroidism with elevated TSH PLAN OF CARE tele serial troponin negative, ECG -A pacing, + lateral TWI, cardio r/o for acute AK per cardio CP atypical ECHO with preserved EF 60-65% and RVSP of 11 elevated CK and CK-MB, doubt rhabdo since LFT and renal parameters WNL give IVF x 1 L, check CK and troponin in am Lipid panel WNL , stop statin for now due to elevated CK Venous Duplex with recanalized chronic thrombus LLE SFV, no acute DVT pacemaker interrogation done, normal function CXR no acute cardiopulmonary disease, + cardiomegaly O2 HHN prn strict aspiration precautions, GT feeding, monitor tolerance PAF management with Amiodarone, BB BP management with ARB and BB elevated TSH ( likely 2 to Amiodarone), hx of hyperthyroidism, decrease Tapazole recheck thyroid panel in 3-4 weeks DVT, GI prophylaxis case discussed and evaluated by supervising physician Subjective Allergies: Coded Allergies: PENICILLINS (Verified Adverse Reaction, Intermediate, 07/23/14) Subjective improving clinically denies chest pain, SOB, palpitations no arrhythmia overnight Objective Last 24 Hour Vital Signs Date Time Temp Pulse Resp B/P Pulse Ox O2 Delivery O2 Flow Rate FiO2 09/07/16 09:37 135/72 09/07/16 09:37 51 135/72 09/07/16 08:22 90 18 Room Air 09/07/16 04:00 96.1 98 18 119/56 96 Room Air 09/07/16 00:00 60 09/07/16 00:00 97.0 63 19 116/64 96 Room Air 09/06/16 20:00 97.7 61 22 112/60 95 Room Air 09/06/16 20:00 60 09/06/16 19:05 61 18 Room Air 09/06/16 17:22 67 130/53 09/06/16 16:00 60 09/06/16 16:00 97.9 60 18 131/95 96 Room Air 09/06/16 12:00 60 09/06/16 12:00 97.7 62 18 142/72 97 Room Air 09/06/16 10:12 149/75 09/06/16 10:12 60 149/75 Intake and Output 09/06/16 09/07/16 19:00 07:00 Intake Total 240 ml 240 ml Balance 240 ml 240 ml Intake Oral 240 ml 240 ml # Voids 2 Objective General Appearance: WD/WN, no acute distress, awake, responsive HEENT: normocephalic, atraumatic, mucous membranes moist, EOMI, no JVD Respiratory/Chest: chest wall non-tender, no respiratory distress, no accessory muscle use, CTAB , left chest pacemaker, intact Cardiovascular: on tele - A pacing Extremities: no edema, pedal pulses normal Neurologic/Psychiatric: alert, responsive Musculoskeletal: normal muscle bulk Microbiology Date/Time Source Procedure Growth Status 09/05/16 03:30 Nasal Nares MRSA Culture - Final NO METHICILLIN RESISTANT STAPH AUREUS... Complete 09/05/16 03:30 Rectum VRE Culture - Final NO VANCOMYCIN RESISTANT ENTEROCOCCUS ... Complete Current Medications Medications (Trade) Dose Ordered Sig/Dominguez Route PRN Reason Start Time Stop Time Status Last Admin Dose Admin Acetaminophen (Tylenol) 650 mg Q4H PRN ORAL FEVER 09/04/16 19:00 10/04/16 18:59 Albuterol/ Ipratropium (DuoNeb 0.5-3(2.5)mg/3ml) 3 ml EVERY 4 HOURS PRN HHN Shortness of Breath 09/04/16 19:00 09/09/16 18:59 Amiodarone HCl (Cordarone) 200 mg DAILY ORAL 09/05/16 09:00 10/05/16 08:59 09/07/16 09:38 Aspirin (ASA) 162 mg DAILY ORAL 09/05/16 09:00 10/05/16 08:59 09/07/16 09:38 Carvedilol (Coreg) 3.125 mg BID GT 09/05/16 09:00 10/05/16 08:59 09/07/16 09:37 Dextrose (Dextrose 50%) STAT PRN IV Hypoglycemia 09/04/16 19:00 10/04/16 18:59 09/05/16 03:09 Diltiazem HCl (Cardizem) 10 mg Q1H PRN IV heart rate more than 120, 09/04/16 19:00 10/04/16 18:59 Enalaprilat (Vasotec) 2.5 mg Q6H PRN IV sbp more than 160 09/04/16 19:00 10/04/16 18:59 Finasteride (Proscar) 5 mg DAILY GT 09/05/16 09:00 10/05/16 08:59 09/07/16 09:37 Heparin Sodium (Porcine) (Heparin 5000 units/ml) 5,000 units EVERY 8 HOURS SUBQ 09/04/16 22:00 10/04/16 21:59 09/06/16 12:54 Insulin Aspart (NovoLOG) BEFORE MEALS AND HS SUBQ 09/05/16 06:30 10/05/16 06:29 09/05/16 06:56 Losartan Potassium (Cozaar) 25 mg DAILY ORAL 09/05/16 09:00 10/05/16 08:59 09/07/16 09:37 Methimazole (Tapazole) 5 mg DAILY GT 09/07/16 09:00 10/07/16 08:59 09/07/16 09:37 Morphine Sulfate (Morphine Sulfate) 2 mg EVERY 4 HOURS PRN IVP severe Pain (Pain Scale 7-10) 09/04/16 19:00 09/11/16 18:59 Nitroglycerin (Ntg) 0.4 mg Q5M PRN SL Prn Chest Pain 09/04/16 19:00 10/04/16 18:59 Ondansetron HCl (Zofran) 4 mg Q6H PRN IVP Nausea & Vomiting 09/04/16 19:00 10/04/16 18:59 Pantoprazole (Protonix) 40 mg DAILY ORAL 09/05/16 09:00 10/05/16 08:59 09/07/16 09:37 Polyethylene Glycol (Miralax) 17 gm DAILYPRN PRN ORAL Constipation 09/04/16 19:00 10/04/16 18:59 Temazepam (Restoril) 15 mg HSPRN PRN ORAL Insomnia 09/04/16 19:00 09/11/16 18:59 Juani David NP ([facility]anchte[facility]) Sep 07, 2016 10:07
--- NOTE | 2016-09-07 10:32 | General Progress Note ---
Assessment/Plan Problem List: (1) HTN (hypertension) ICD Codes: I10 - Essential (primary) hypertension SNOMED: 22068468 (2) Pacemaker ICD Codes: Z95.0 - Presence of cardiac pacemaker SNOMED: 393792245, 990095800 (3) History of CVA (cerebrovascular accident) ICD Codes: Z86.73 - Personal history of transient ischemic attack (TIA), and cerebral infarction without residual deficits SNOMED: 293004326 (4) Chest pain ICD Codes: R07.9 - Chest pain, unspecified SNOMED: 62991935 (5) ACS (acute coronary syndrome) ICD Codes: I24.9 - Acute ischemic heart disease, unspecified SNOMED: 536634896 Status: stable, progressing, tolerating diet Assessment/Plan ot pt diet cardio pulm f/u cbc bmp am Subjective Allergies: Coded Allergies: PENICILLINS (Verified Adverse Reaction, Intermediate, 07/23/14) All Systems: reviewed and negative except above Subjective calm in bed Objective Last 24 Hour Vital Signs Date Time Temp Pulse Resp B/P Pulse Ox O2 Delivery O2 Flow Rate FiO2 09/07/16 09:37 135/72 09/07/16 09:37 51 135/72 09/07/16 08:22 90 18 Room Air 09/07/16 08:00 97.6 57 20 135/72 98 Room Air 09/07/16 08:00 60 09/07/16 04:00 96.1 98 18 119/56 96 Room Air 09/07/16 00:00 60 09/07/16 00:00 97.0 63 19 116/64 96 Room Air 09/06/16 20:00 97.7 61 22 112/60 95 Room Air 09/06/16 20:00 60 09/06/16 19:05 61 18 Room Air 09/06/16 17:22 67 130/53 09/06/16 16:00 60 09/06/16 16:00 97.9 60 18 131/95 96 Room Air 09/06/16 12:00 60 09/06/16 12:00 97.7 62 18 142/72 97 Room Air Intake and Output 09/06/16 09/07/16 19:00 07:00 Intake Total 240 ml 240 ml Balance 240 ml 240 ml Intake Oral 240 ml 240 ml # Voids 2 Height (Feet): 5 Height (Inches): 5.00 Weight (Pounds): 160 General Appearance: lethargic EENT: normal ENT inspection Neck: normal alignment Cardiovascular: normal peripheral pulses, normal rate, regular rhythm Respiratory/Chest: chest wall non-tender, lungs clear, normal breath sounds Abdomen: normal bowel sounds, non tender, soft Extremities: normal inspection Edema: no edema noted Arm (L), no edema noted Arm (R), no edema noted Leg (L), no edema noted Leg (R), no edema noted Pedal (L), no edema noted Pedal (R), no edema noted Generalized Neurologic: motor weakness Skin: normal pigmentation, warm/dry JASMIN MEJIAS Sep 07, 2016 10:32
--- NOTE | 2016-09-07 11:38 | Cardiac Electrophysiology PN ---
Assessment/Plan Assessment/Plan 1. Atypical Chest pain. Ruled out for myocardial infarction . EKG showed lateral T-wave inversion in atrially paced rhythm. Likely abnormal repolarization due to abnormal depolarization of intermittent V pacing. No further chest pain 2. Status post [employer] pacemaker implantation by me.Interrogated and showed nl function. 3. Paroxysmal atrial fibrillation. Continue Amiodarone, Coreg 3.125 bid and Ecotrin. 4. Hypertension, on Cozaar 25 and Coreg 3.125 bid. 5. Hyperlipidemia, resume Zocor. 6. Dysphagia status post percutaneous endoscopic gastrostomy placement.PEG feeding on hold. 7. History of tracheostomy that was subsequently closed. 8. Schizophrenia. CHAR RN Subjective Subjective Alert in NAD. No chest pain.SJ Pacer interrogation showed NL function.No arrhythmias overnight. GT feeding on hold. Objective Last 24 Hour Vital Signs Date Time Temp Pulse Resp B/P Pulse Ox O2 Delivery O2 Flow Rate FiO2 09/07/16 09:37 135/72 09/07/16 09:37 51 135/72 09/07/16 08:22 90 18 Room Air 09/07/16 08:00 97.6 57 20 135/72 98 Room Air 09/07/16 08:00 60 09/07/16 04:00 96.1 98 18 119/56 96 Room Air 09/07/16 00:00 60 09/07/16 00:00 97.0 63 19 116/64 96 Room Air 09/06/16 20:00 97.7 61 22 112/60 95 Room Air 09/06/16 20:00 60 09/06/16 19:05 61 18 Room Air 09/06/16 17:22 67 130/53 09/06/16 16:00 60 09/06/16 16:00 97.9 60 18 131/95 96 Room Air 09/06/16 12:00 60 09/06/16 12:00 97.7 62 18 142/72 97 Room Air Intake and Output 09/06/16 09/07/16 19:00 07:00 Intake Total 240 ml 240 ml Balance 240 ml 240 ml Intake Oral 240 ml 240 ml # Voids 2 Laboratory Tests Test 09/07/16 10:40 Total Creatine Kinase Pending Current Medications Medications (Trade) Dose Ordered Sig/Dominguez Route PRN Reason Start Time Stop Time Status Last Admin Dose Admin Acetaminophen (Tylenol) 650 mg Q4H PRN ORAL FEVER 09/04/16 19:00 10/04/16 18:59 Albuterol/ Ipratropium (DuoNeb 0.5-3(2.5)mg/3ml) 3 ml EVERY 4 HOURS PRN HHN Shortness of Breath 09/04/16 19:00 09/09/16 18:59 Amiodarone HCl (Cordarone) 200 mg DAILY ORAL 09/05/16 09:00 10/05/16 08:59 09/07/16 09:38 Aspirin (ASA) 162 mg DAILY ORAL 09/05/16 09:00 10/05/16 08:59 09/07/16 09:38 Carvedilol (Coreg) 3.125 mg BID GT 09/05/16 09:00 10/05/16 08:59 09/07/16 09:37 Dextrose (Dextrose 50%) STAT PRN IV Hypoglycemia 09/04/16 19:00 10/04/16 18:59 09/05/16 03:09 Diltiazem HCl (Cardizem) 10 mg Q1H PRN IV heart rate more than 120, 09/04/16 19:00 10/04/16 18:59 Enalaprilat (Vasotec) 2.5 mg Q6H PRN IV sbp more than 160 09/04/16 19:00 10/04/16 18:59 Finasteride (Proscar) 5 mg DAILY GT 09/05/16 09:00 10/05/16 08:59 09/07/16 09:37 Heparin Sodium (Porcine) (Heparin 5000 units/ml) 5,000 units EVERY 8 HOURS SUBQ 09/04/16 22:00 10/04/16 21:59 09/06/16 12:54 Insulin Aspart (NovoLOG) BEFORE MEALS AND HS SUBQ 09/05/16 06:30 10/05/16 06:29 09/05/16 06:56 Losartan Potassium (Cozaar) 25 mg DAILY ORAL 09/05/16 09:00 10/05/16 08:59 09/07/16 09:37 Methimazole 5 mg 5 mg DAILY GT 09/07/16 09:00 10/07/16 08:59 09/07/16 09:37 Morphine Sulfate (Morphine Sulfate) 2 mg EVERY 4 HOURS PRN IVP severe Pain (Pain Scale 7-10) 09/04/16 19:00 09/11/16 18:59 Nitroglycerin (Ntg) 0.4 mg Q5M PRN SL Prn Chest Pain 09/04/16 19:00 10/04/16 18:59 Ondansetron HCl (Zofran) 4 mg Q6H PRN IVP Nausea & Vomiting 09/04/16 19:00 10/04/16 18:59 Pantoprazole (Protonix) 40 mg DAILY ORAL 09/05/16 09:00 10/05/16 08:59 09/07/16 09:37 Polyethylene Glycol (Miralax) 17 gm DAILYPRN PRN ORAL Constipation 09/04/16 19:00 10/04/16 18:59 Sodium Chloride (Sodium Chloride 1000ml bag) 1,000 ml @ 75 mls/hr [id number] IV 09/07/16 10:00 09/07/16 23:19 09/07/16 10:50 Temazepam (Restoril) 15 mg HSPRN PRN ORAL Insomnia 09/04/16 19:00 09/11/16 18:59 Microbiology Date/Time Source Procedure Growth Status 09/05/16 03:30 Nasal Nares MRSA Culture - Final NO METHICILLIN RESISTANT STAPH AUREUS... Complete 09/05/16 03:30 Rectum VRE Culture - Final NO VANCOMYCIN RESISTANT ENTEROCOCCUS ... Complete Objective NECK: Showed no JVD. LUNGS: Coarse rhonchi. CARDIOVASCULAR: Shows regular S1 and S2 with no gallop or murmur.The pacemaker in the left subclavian is intact. ABDOMEN: Status post G-tube. EXTREMITIES: Showed no pitting edema. YARIEL SMITH Sep 07, 2016 11:38
[2016-09-07 12:00] VITALS: BP 125/68
--- NOTE | 2016-09-07 14:59 | Cardiology Report ---
APPROVED REPORT EKG Measurement Heart [id number] NH 240P [id number] PRl196 atrial paced ventricular sensed
[2016-09-07 16:00] VITALS: BP 132/73
[2016-09-07 20:00] VITALS: BP 112/57
[2016-09-08] VITALS: BP 130/71
[2016-09-08 04:00] VITALS: BP 142/77
[2016-09-08] MEDS: Heparin 5000 units/ml inj SUBQ SCH ×3 (06:00→21:04)
[2016-09-08] MEDS: NovoLOG Insulin Flexpen SUBQ SCH ×4 (06:30→20:20)
[2016-09-08 08:00] VITALS: BP 133/84
[2016-09-08 08:12] LABS: BASOPHILS % (AUTO) 1.4 % (0.0-2.0); EOSINOPHILS % (AUTO) 8.3 % (0.0-3.0); LYMPHOCYTES % (AUTO) 19.2 % (20.0-45.0); MEAN CORPUSCULAR HEMOGLOBIN 32.7 PG (27.0-31.0); MEAN CORPUSCULAR HGB CONC 31.6 G/DL (32.0-36.0); MEAN CORPUSCULAR VOLUME 103 FL (80-99); MEAN PLATELET VOLUME 10.6 FL (6.5-10.1); MONOCYTES % (AUTO) 5.8 % (1.0-10.0); NEUTROPHILS % (AUTO) 65.4 % (45.0-75.0); PLATELET COUNT 117 K/UL (150-450); RED BLOOD COUNT 4.24 M/UL (4.70-6.10); RED CELL DISTRIBUTION WIDTH 12.4 % (11.6-14.8); WHITE BLOOD COUNT 4.7 K/UL (4.8-10.8)
[2016-09-08 08:25] LABS: ALANINE AMINOTRANSFERASE 17 U/L (3-41); ALBUMIN/GLOBULIN RATIO 1.1 (1.0-2.7); ANION GAP 15 (5-15); ASPARTATE AMINO TRANSFERASE 50 U/L (5-40); CALCIUM 8.8 mg/dL (8.6-10.2); CARBON DIOXIDE 24 mEQ/L (20-30); CHLORIDE 101 mEQ/L (98-107); CREATININE 1.2 mg/dL (0.7-1.2); HEMOLYSIS 4; POTASSIUM 3.8 mEQ/L (3.4-4.9); SODIUM 140 mEQ/L (135-145); TOTAL PROTEIN 7.4 g/dL (6.6-8.7)
[2016-09-08 08:47] LABS: TROPONIN I < 0.30 ng/mL (<=0.30)
[2016-09-08] MEDS: Methimazole 5mg tab GT SCH (09:17)
[2016-09-08] MEDS: Aspirin Baby 81mg ORAL SCH (09:17)
[2016-09-08] MEDS: Amiodarone 200mg tab ORAL SCH (09:18)
[2016-09-08] MEDS: Losartan 25mg tab ORAL SCH (09:18)
[2016-09-08 12:00] VITALS: BP 131/68
--- NOTE | 2016-09-08 13:44 | Pulmonology Progress Note ---
Assessment/Plan Problems: (1) ACS (acute coronary syndrome) (2) HTN (hypertension) (3) Pacemaker (4) History of CVA (cerebrovascular accident) (5) g tube replacement Assessment/Plan NC ruled out Pace maker interrogated tolerating oral feeding labs, meds check dc planning med/surg for now Subjective ROS Limited/Unobtainable: No Constitutional: Reports: no symptoms HEENT: Repors: no symptoms Respiratory: Reports: no symptoms Allergies: Coded Allergies: PENICILLINS (Verified Adverse Reaction, Intermediate, 07/23/14) Objective Last 24 Hour Vital Signs Date Time Temp Pulse Resp B/P Pulse Ox O2 Delivery O2 Flow Rate FiO2 09/08/16 12:00 60 09/08/16 12:00 98.2 62 17 131/68 96 Room Air 09/08/16 09:18 133/84 09/08/16 09:18 60 133/84 09/08/16 08:00 96.7 60 17 133/84 95 Room Air 09/08/16 08:00 60 09/08/16 04:00 97.0 60 20 142/77 97 Room Air 09/08/16 04:00 60 09/08/16 00:00 60 09/08/16 00:00 97.7 60 20 130/71 96 Room Air 09/07/16 20:00 97.9 60 19 112/57 95 Room Air 09/07/16 20:00 60 09/07/16 19:15 60 18 Room Air 09/07/16 18:42 60 132/73 09/07/16 16:00 60 09/07/16 16:00 97.6 60 19 132/73 99 Room Air Intake and Output 09/07/16 09/08/16 19:00 07:00 Intake Total 450 ml 125 ml Balance 450 ml 125 ml Intake Oral 150 ml 125 ml IV Total 300 ml # Voids 3 2 General Appearance: WD/WN HEENT: normocephalic, atraumatic Respiratory/Chest: chest wall non-tender, lungs clear Cardiovascular: normal peripheral pulses, normal rate Abdomen: normal bowel sounds, soft, non tender Genitourinary: normal external genitalia Extremities: no clubbing Neurologic/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: 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, no motor/sensory deficits Lymphatic: no neck adenopathy Musculoskeletal: normal muscle bulk Laboratory Tests 09/08/16 06:50: White Blood Count 4.7L, Red Blood Count 4.24L, Hemoglobin 13.9L, Hematocrit 43.8 , Mean Corpuscular Volume 103H, Mean Corpuscular Hemoglobin 32.7H, Mean Corpuscular Hemoglobin Concent 31.6L, Red Cell Distribution Width 12.4, Platelet Count 117L, Mean Platelet Volume 10.6H, Neutrophils (%) (Auto) 65.4, Lymphocytes (%) (Auto) 19.2L, Monocytes (%) (Auto) 5.8, Eosinophils (%) (Auto) 8.3H, Basophils (%) (Auto) 1.4, Sodium Level 140, Potassium Level 3.8, Chloride Level 101, Carbon Dioxide Level 24, Anion Gap 15, Blood Urea Nitrogen 21, Creatinine 1.2, Estimat Glomerular Filtration Rate , Glucose Level 86, Calcium Level 8.8, Total Bilirubin 0.8, Aspartate Amino Transf (AST/SGOT) 50H, Alanine Aminotransferase (ALT/SGPT) 17, Alkaline Phosphatase 65, Troponin I < 0.30, Total Protein 7.4, Albumin 4.0, Globulin 3.4, Albumin/Globulin Ratio 1.1 Current Medications Medications (Trade) Dose Ordered Sig/Dominguez Route PRN Reason Start Time Stop Time Status Last Admin Dose Admin Acetaminophen (Tylenol) 650 mg Q4H PRN ORAL FEVER 09/04/16 19:00 10/04/16 18:59 Albuterol/ Ipratropium (DuoNeb 0.5-3(2.5)mg/3ml) 3 ml EVERY 4 HOURS PRN HHN Shortness of Breath 09/04/16 19:00 09/09/16 18:59 Amiodarone HCl (Cordarone) 200 mg DAILY ORAL 09/05/16 09:00 10/05/16 08:59 09/08/16 09:18 Aspirin (ASA) 162 mg DAILY ORAL 09/05/16 09:00 10/05/16 08:59 09/08/16 09:17 Carvedilol (Coreg) 3.125 mg BID GT 09/05/16 09:00 10/05/16 08:59 09/08/16 09:18 Dextrose (Dextrose 50%) STAT PRN IV Hypoglycemia 09/04/16 19:00 10/04/16 18:59 09/05/16 03:09 Diltiazem HCl (Cardizem) 10 mg Q1H PRN IV heart rate more than 120, 09/04/16 19:00 10/04/16 18:59 Enalaprilat (Vasotec) 2.5 mg Q6H PRN IV sbp more than 160 09/04/16 19:00 10/04/16 18:59 Finasteride (Proscar) 5 mg DAILY GT 09/05/16 09:00 10/05/16 08:59 09/08/16 09:18 Heparin Sodium (Porcine) (Heparin 5000 units/ml) 5,000 units EVERY 8 HOURS SUBQ 09/04/16 22:00 10/04/16 21:59 09/07/16 21:45 Insulin Aspart (NovoLOG) BEFORE MEALS AND HS SUBQ 09/05/16 06:30 10/05/16 06:29 09/05/16 06:56 Losartan Potassium (Cozaar) 25 mg DAILY ORAL 09/05/16 09:00 10/05/16 08:59 09/08/16 09:18 Methimazole (Tapazole) 5 mg DAILY GT 09/07/16 09:00 10/07/16 08:59 09/08/16 09:17 Morphine Sulfate (Morphine Sulfate) 2 mg EVERY 4 HOURS PRN IVP severe Pain (Pain Scale 7-10) 09/04/16 19:00 09/11/16 18:59 Nitroglycerin (Ntg) 0.4 mg Q5M PRN SL Prn Chest Pain 09/04/16 19:00 10/04/16 18:59 Ondansetron HCl (Zofran) 4 mg Q6H PRN IVP Nausea & Vomiting 09/04/16 19:00 10/04/16 18:59 Pantoprazole (Protonix) 40 mg DAILY ORAL 09/05/16 09:00 10/05/16 08:59 09/08/16 09:17 Polyethylene Glycol (Miralax) 17 gm DAILYPRN PRN ORAL Constipation 09/04/16 19:00 10/04/16 18:59 Temazepam (Restoril) 15 mg HSPRN PRN ORAL Insomnia 09/04/16 19:00 09/11/16 18:59 CARMELO REDMAN Sep 08, 2016 13:44
--- NOTE | 2016-09-08 14:27 | General Progress Note ---
Assessment/Plan Problem List: (1) HTN (hypertension) ICD Codes: I10 - Essential (primary) hypertension SNOMED: 43851308 (2) Pacemaker ICD Codes: Z95.0 - Presence of cardiac pacemaker SNOMED: 772576405, 366558970 (3) History of CVA (cerebrovascular accident) ICD Codes: Z86.73 - Personal history of transient ischemic attack (TIA), and cerebral infarction without residual deficits SNOMED: 579625403 (4) Chest pain ICD Codes: R07.9 - Chest pain, unspecified SNOMED: 80838571 (5) ACS (acute coronary syndrome) ICD Codes: I24.9 - Acute ischemic heart disease, unspecified SNOMED: 065265941 Status: stable, progressing, tolerating diet Assessment/Plan ot pt diet cardio pulm f/u cbc bmp am Subjective Constitutional: Reports: weakness Allergies: Coded Allergies: PENICILLINS (Verified Adverse Reaction, Intermediate, 07/23/14) All Systems: reviewed and negative except above Subjective calm in bed Objective Last 24 Hour Vital Signs Date Time Temp Pulse Resp B/P Pulse Ox O2 Delivery O2 Flow Rate FiO2 09/08/16 12:00 60 09/08/16 12:00 98.2 62 17 131/68 96 Room Air 09/08/16 09:18 133/84 09/08/16 09:18 60 133/84 09/08/16 08:00 96.7 60 17 133/84 95 Room Air 09/08/16 08:00 60 09/08/16 04:00 97.0 60 20 142/77 97 Room Air 09/08/16 04:00 60 09/08/16 00:00 60 09/08/16 00:00 97.7 60 20 130/71 96 Room Air 09/07/16 20:00 97.9 60 19 112/57 95 Room Air 09/07/16 20:00 60 09/07/16 19:15 60 18 Room Air 09/07/16 18:42 60 132/73 09/07/16 16:00 60 09/07/16 16:00 97.6 60 19 132/73 99 Room Air Intake and Output 09/07/16 09/08/16 19:00 07:00 Intake Total 450 ml 125 ml Balance 450 ml 125 ml Intake Oral 150 ml 125 ml IV Total 300 ml # Voids 3 2 Laboratory Tests 09/08/16 06:50: White Blood Count 4.7L, Red Blood Count 4.24L, Hemoglobin 13.9L, Hematocrit 43.8 , Mean Corpuscular Volume 103H, Mean Corpuscular Hemoglobin 32.7H, Mean Corpuscular Hemoglobin Concent 31.6L, Red Cell Distribution Width 12.4, Platelet Count 117L, Mean Platelet Volume 10.6H, Neutrophils (%) (Auto) 65.4, Lymphocytes (%) (Auto) 19.2L, Monocytes (%) (Auto) 5.8, Eosinophils (%) (Auto) 8.3H, Basophils (%) (Auto) 1.4, Sodium Level 140, Potassium Level 3.8, Chloride Level 101, Carbon Dioxide Level 24, Anion Gap 15, Blood Urea Nitrogen 21, Creatinine 1.2, Estimat Glomerular Filtration Rate , Glucose Level 86, Calcium Level 8.8, Total Bilirubin 0.8, Aspartate Amino Transf (AST/SGOT) 50H, Alanine Aminotransferase (ALT/SGPT) 17, Alkaline Phosphatase 65, Troponin I < 0.30, Total Protein 7.4, Albumin 4.0, Globulin 3.4, Albumin/Globulin Ratio 1.1 Height (Feet): 5 Height (Inches): 5.00 Weight (Pounds): 160 General Appearance: lethargic EENT: normal ENT inspection Neck: normal alignment Cardiovascular: normal peripheral pulses, normal rate, regular rhythm Respiratory/Chest: chest wall non-tender, lungs clear, normal breath sounds Abdomen: normal bowel sounds, non tender, soft Extremities: normal inspection Edema: no edema noted Arm (L), no edema noted Arm (R), no edema noted Leg (L), no edema noted Leg (R), no edema noted Pedal (L), no edema noted Pedal (R), no edema noted Generalized Neurologic: motor weakness Skin: normal pigmentation, warm/dry JASMIN MEJIAS Sep 08, 2016 14:27
[2016-09-08 16:00] VITALS: BP 128/85
[2016-09-08 20:00] VITALS: BP 125/74
[2016-09-09 00:44] VITALS: BP 132/72
[2016-09-09 04:14] VITALS: BP 117/69
[2016-09-09] MEDS: NovoLOG Insulin Flexpen SUBQ SCH ×3 (06:16→15:48)
[2016-09-09] MEDS: Heparin 5000 units/ml inj SUBQ SCH ×2 (06:25→13:19)
[2016-09-09 08:05] VITALS: BP 124/74
[2016-09-09] MEDS: Methimazole 5mg tab GT SCH (09:17)
[2016-09-09] MEDS: Losartan 25mg tab ORAL SCH (09:18)
[2016-09-09] MEDS: Aspirin Baby 81mg ORAL SCH (09:18)
[2016-09-09] MEDS: Amiodarone 200mg tab ORAL SCH (09:18)
[2016-09-09 11:51] VITALS: BP 129/69
--- NOTE | 2016-09-09 12:40 | Pulmonology Progress Note ---
Assessment/Plan Problems: (1) ACS (acute coronary syndrome) (2) HTN (hypertension) (3) Pacemaker (4) History of CVA (cerebrovascular accident) (5) g tube replacement Assessment/Plan no new complians looks comfortable OK ruled out Pace maker interrogated tolerating oral feeding labs, meds check dc planning med/surg for now Subjective ROS Limited/Unobtainable: No Constitutional: Reports: no symptoms HEENT: Repors: no symptoms Respiratory: Reports: no symptoms Allergies: Coded Allergies: PENICILLINS (Verified Adverse Reaction, Intermediate, 07/23/14) Objective Last 24 Hour Vital Signs Date Time Temp Pulse Resp B/P Pulse Ox O2 Delivery O2 Flow Rate FiO2 09/09/16 11:51 97.0 60 20 129/69 94 Room Air 09/09/16 09:18 124/74 09/09/16 09:17 60 124/74 09/09/16 08:05 97.0 60 20 124/74 95 Room Air 09/09/16 08:00 60 09/09/16 07:03 62 18 Room Air 21 09/09/16 04:14 98.8 63 19 117/69 96 Room Air 09/09/16 04:00 60 09/09/16 00:44 97.2 88 20 132/72 94 Room Air 09/09/16 00:00 60 09/08/16 20:00 97.4 60 20 125/74 94 Room Air 09/08/16 20:00 60 09/08/16 18:45 69 18 Room Air 21 09/08/16 17:12 82 136/62 09/08/16 16:00 96.9 63 17 128/85 95 Room Air 09/08/16 16:00 60 Intake and Output 09/08/16 09/09/16 19:00 07:00 Intake Total 620 ml Balance 620 ml Intake Oral 620 ml # Voids 4 3 General Appearance: WD/WN HEENT: normocephalic, atraumatic Respiratory/Chest: chest wall non-tender, lungs clear Cardiovascular: normal peripheral pulses, normal rate Abdomen: normal bowel sounds, soft, non tender Neurologic/Psychiatric: 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 grossly normal Lymphatic: no neck adenopathy Current Medications Medications (Trade) Dose Ordered Sig/Dominguez Route PRN Reason Start Time Stop Time Status Last Admin Dose Admin Acetaminophen (Tylenol) 650 mg Q4H PRN ORAL FEVER 09/04/16 19:00 10/04/16 18:59 Albuterol/ Ipratropium (DuoNeb 0.5-3(2.5)mg/3ml) 3 ml EVERY 4 HOURS PRN HHN Shortness of Breath 09/04/16 19:00 09/09/16 18:59 Amiodarone HCl (Cordarone) 200 mg DAILY ORAL 09/05/16 09:00 10/05/16 08:59 09/09/16 09:18 Aspirin (ASA) 162 mg DAILY ORAL 09/05/16 09:00 10/05/16 08:59 09/09/16 09:18 Carvedilol (Coreg) 3.125 mg BID GT 09/05/16 09:00 10/05/16 08:59 09/09/16 09:17 Dextrose (Dextrose 50%) STAT PRN IV Hypoglycemia 09/04/16 19:00 10/04/16 18:59 09/05/16 03:09 Diltiazem HCl (Cardizem) 10 mg Q1H PRN IV heart rate more than 120, 09/04/16 19:00 10/04/16 18:59 Enalaprilat (Vasotec) 2.5 mg Q6H PRN IV sbp more than 160 09/04/16 19:00 10/04/16 18:59 Finasteride (Proscar) 5 mg DAILY GT 09/05/16 09:00 10/05/16 08:59 09/09/16 09:18 Heparin Sodium (Porcine) (Heparin 5000 units/ml) 5,000 units EVERY 8 HOURS SUBQ 09/04/16 22:00 10/04/16 21:59 09/09/16 06:25 Insulin Aspart (NovoLOG) BEFORE MEALS AND HS SUBQ 09/05/16 06:30 10/05/16 06:29 09/09/16 11:42 Losartan Potassium (Cozaar) 25 mg DAILY ORAL 09/05/16 09:00 10/05/16 08:59 09/09/16 09:18 Methimazole (Tapazole) 5 mg DAILY GT 09/07/16 09:00 10/07/16 08:59 09/09/16 09:17 Morphine Sulfate (Morphine Sulfate) 2 mg EVERY 4 HOURS PRN IVP severe Pain (Pain Scale 7-10) 09/04/16 19:00 09/11/16 18:59 Nitroglycerin (Ntg) 0.4 mg Q5M PRN SL Prn Chest Pain 09/04/16 19:00 10/04/16 18:59 Ondansetron HCl (Zofran) 4 mg Q6H PRN IVP Nausea & Vomiting 09/04/16 19:00 10/04/16 18:59 Pantoprazole (Protonix) 40 mg DAILY ORAL 09/05/16 09:00 10/05/16 08:59 09/09/16 09:17 Polyethylene Glycol (Miralax) 17 gm DAILYPRN PRN ORAL Constipation 09/04/16 19:00 10/04/16 18:59 Temazepam (Restoril) 15 mg HSPRN PRN ORAL Insomnia 09/04/16 19:00 09/11/16 18:59 CARMELO REDMAN Sep 09, 2016 12:40
--- NOTE | 2016-09-09 14:37 | General Progress Note ---
Assessment/Plan Problem List: (1) HTN (hypertension) ICD Codes: I10 - Essential (primary) hypertension SNOMED: 93461423 (2) Pacemaker ICD Codes: Z95.0 - Presence of cardiac pacemaker SNOMED: 390812946, 956815905 (3) History of CVA (cerebrovascular accident) ICD Codes: Z86.73 - Personal history of transient ischemic attack (TIA), and cerebral infarction without residual deficits SNOMED: 889018109 (4) Chest pain ICD Codes: R07.9 - Chest pain, unspecified SNOMED: 21343082 (5) ACS (acute coronary syndrome) ICD Codes: I24.9 - Acute ischemic heart disease, unspecified SNOMED: 245353968 Status: stable, progressing, tolerating diet Assessment/Plan ot pt diet cardio pulm f/u dc plan Subjective Constitutional: Reports: weakness Allergies: Coded Allergies: PENICILLINS (Verified Adverse Reaction, Intermediate, 07/23/14) All Systems: reviewed and negative except above Subjective calm in bed Objective Last 24 Hour Vital Signs Date Time Temp Pulse Resp B/P Pulse Ox O2 Delivery O2 Flow Rate FiO2 09/09/16 11:51 97.0 60 20 129/69 94 Room Air 09/09/16 09:18 124/74 09/09/16 09:17 60 124/74 09/09/16 08:05 97.0 60 20 124/74 95 Room Air 09/09/16 08:00 60 09/09/16 07:03 62 18 Room Air 21 09/09/16 04:14 98.8 63 19 117/69 96 Room Air 09/09/16 04:00 60 09/09/16 00:44 97.2 88 20 132/72 94 Room Air 09/09/16 00:00 60 09/08/16 20:00 97.4 60 20 125/74 94 Room Air 09/08/16 20:00 60 09/08/16 18:45 69 18 Room Air 21 09/08/16 17:12 82 136/62 09/08/16 16:00 96.9 63 17 128/85 95 Room Air 09/08/16 16:00 60 Intake and Output 09/08/16 09/09/16 19:00 07:00 Intake Total 620 ml Balance 620 ml Intake Oral 620 ml # Voids 4 3 Height (Feet): 5 Height (Inches): 5.00 Weight (Pounds): 160 General Appearance: lethargic EENT: normal ENT inspection Neck: normal alignment Cardiovascular: normal peripheral pulses, normal rate, regular rhythm Respiratory/Chest: chest wall non-tender, lungs clear, normal breath sounds Abdomen: normal bowel sounds, non tender, soft Extremities: normal inspection Edema: no edema noted Arm (L), no edema noted Arm (R), no edema noted Leg (L), no edema noted Leg (R), no edema noted Pedal (L), no edema noted Pedal (R), no edema noted Generalized Neurologic: responsive, motor weakness Skin: normal pigmentation, warm/dry JASMIN MEJIAS Sep 09, 2016 14:37
[2016-09-09 16:00] VITALS: BP 139/55
--- NOTE | 2016-09-09 16:23 | Wound Care Consultation ---
Wound Assessment Wound Assessment : Wound Present on Admission: No New Wound: Yes Status Change of Wound: No Wound Location Body Site Modif: left, lower Wound Location Body Site: abdomen - and scrotum Wound Type: traumatic injury Anabella Test: Does not Anabella Traumatic Injury Wounds: Self Inflicted Scratch Wound Thickness: Partial Thickness Wound Drainage Amount: None Wound Drainage Odor: None/Absent Tissue Surrounding Wound: Intact Wound General Appearance: Reddened Wound Comment Full body assessment done. Pt with new self inflicted scratches cantu on scrotum and old self inflicted scratches cantu on right thigh. Recommendation -Keep clean and dry -Turn and reposition -Keep skin moist -Assess and f/u accordingly for any changes. GERALD VALLES RN Sep 09, 2016 16:23
--- NOTE | 2016-09-09 17:34 | Cardiac Electrophysiology PN ---
Assessment/Plan Assessment/Plan 1. Atypical Chest pain. Ruled out for myocardial infarction . EKG showed lateral T-wave inversion in atrially paced rhythm. Likely abnormal repolarization due to abnormal depolarization of intermittent V pacing. No further chest pain. 2. Status post St. Kevin pacemaker implantation by me.Interrogated and showed nl function. 3. Paroxysmal atrial fibrillation. Continue Amiodarone, Coreg 3.125 bid and Ecotrin. 4. Hypertension, on Cozaar 25 and Coreg 3.125 bid. 5. Hyperlipidemia, resume Zocor. 6. Dysphagia status post percutaneous endoscopic gastrostomy placement. 7. History of tracheostomy that was subsequently closed. 8. Schizophrenia. CHAR RN DC tele. Subjective Subjective Alert in NAD. No chest pain or SOB.No arrhythmias overnight. Objective Last 24 Hour Vital Signs Date Time Temp Pulse Resp B/P Pulse Ox O2 Delivery O2 Flow Rate FiO2 09/09/16 17:28 60 09/09/16 16:00 98.2 60 18 139/55 95 Room Air 09/09/16 12:00 60 09/09/16 11:51 97.0 60 20 129/69 94 Room Air 09/09/16 09:18 124/74 09/09/16 09:17 60 124/74 09/09/16 08:05 97.0 60 20 124/74 95 Room Air 09/09/16 08:00 60 09/09/16 07:03 62 18 Room Air 21 09/09/16 04:14 98.8 63 19 117/69 96 Room Air 09/09/16 04:00 60 09/09/16 00:44 97.2 88 20 132/72 94 Room Air 09/09/16 00:00 60 09/08/16 20:00 97.4 60 20 125/74 94 Room Air 09/08/16 20:00 60 09/08/16 18:45 69 18 Room Air 21 Intake and Output 09/08/16 09/09/16 19:00 07:00 Intake Total 620 ml Balance 620 ml Intake Oral 620 ml # Voids 4 3 Labs Test 09/08/16 06:50 White Blood Count 4.7 K/UL (4.8-10.8) Red Blood Count 4.24 M/UL (4.70-6.10) Hemoglobin 13.9 G/DL (14.2-18.0) Hematocrit 43.8 % (42.0-52.0) Mean Corpuscular Volume 103 FL (80-99) Mean Corpuscular Hemoglobin 32.7 PG (27.0-31.0) Mean Corpuscular Hemoglobin Concent 31.6 G/DL (32.0-36.0) Red Cell Distribution Width 12.4 % (11.6-14.8) Platelet Count 117 K/UL (150-450) Mean Platelet Volume 10.6 FL (6.5-10.1) Neutrophils (%) (Auto) 65.4 % (45.0-75.0) Lymphocytes (%) (Auto) 19.2 % (20.0-45.0) Monocytes (%) (Auto) 5.8 % (1.0-10.0) Eosinophils (%) (Auto) 8.3 % (0.0-3.0) Basophils (%) (Auto) 1.4 % (0.0-2.0) Sodium Level 140 mEQ/L (135-145) Potassium Level 3.8 mEQ/L (3.4-4.9) Chloride Level 101 mEQ/L (98-107) Carbon Dioxide Level 24 mEQ/L (20-30) Anion Gap 15 (5-15) Blood Urea Nitrogen 21 mg/dL (7-23) Creatinine 1.2 mg/dL (0.7-1.2) Estimat Glomerular Filtration Rate mL/min (>60) Glucose Level 86 mg/dL (74-106) Calcium Level 8.8 mg/dL (8.6-10.2) Total Bilirubin 0.8 mg/dL (0.0-1.2) Aspartate Amino Transf (AST/SGOT) 50 U/L (5-40) Alanine Aminotransferase (ALT/SGPT) 17 U/L (3-41) Alkaline Phosphatase 65 U/L (40-129) Troponin I < 0.30 ng/mL (<=0.30) Total Protein 7.4 g/dL (6.6-8.7) Albumin 4.0 g/dL (3.5-5.2) Globulin 3.4 g/dL Albumin/Globulin Ratio 1.1 (1.0-2.7) Current Medications Medications (Trade) Dose Ordered Sig/Dominguez Route PRN Reason Start Time Stop Time Status Last Admin Dose Admin Acetaminophen (Tylenol) 650 mg Q4H PRN ORAL FEVER 09/04/16 19:00 10/04/16 18:59 Albuterol/ Ipratropium (DuoNeb 0.5-3(2.5)mg/3ml) 3 ml EVERY 4 HOURS PRN HHN Shortness of Breath 09/04/16 19:00 09/09/16 18:59 Amiodarone HCl (Cordarone) 200 mg DAILY ORAL 09/05/16 09:00 10/05/16 08:59 09/09/16 09:18 Aspirin (ASA) 162 mg DAILY ORAL 09/05/16 09:00 10/05/16 08:59 09/09/16 09:18 Carvedilol (Coreg) 3.125 mg BID GT 09/05/16 09:00 10/05/16 08:59 09/09/16 17:28 Dextrose (Dextrose 50%) STAT PRN IV Hypoglycemia 09/04/16 19:00 10/04/16 18:59 09/05/16 03:09 Diltiazem HCl (Cardizem) 10 mg Q1H PRN IV heart rate more than 120, 09/04/16 19:00 10/04/16 18:59 Enalaprilat (Vasotec) 2.5 mg Q6H PRN IV sbp more than 160 09/04/16 19:00 10/04/16 18:59 Finasteride (Proscar) 5 mg DAILY GT 09/05/16 09:00 10/05/16 08:59 09/09/16 09:18 Heparin Sodium (Porcine) (Heparin 5000 units/ml) 5,000 units EVERY 8 HOURS SUBQ 09/04/16 22:00 10/04/16 21:59 09/09/16 13:19 Insulin Aspart (NovoLOG) BEFORE MEALS AND HS SUBQ 09/05/16 06:30 10/05/16 06:29 09/09/16 11:42 Losartan Potassium (Cozaar) 25 mg DAILY ORAL 09/05/16 09:00 10/05/16 08:59 09/09/16 09:18 Methimazole (Tapazole) 5 mg DAILY GT 09/07/16 09:00 10/07/16 08:59 09/09/16 09:17 Morphine Sulfate (Morphine Sulfate) 2 mg EVERY 4 HOURS PRN IVP severe Pain (Pain Scale 7-10) 09/04/16 19:00 09/11/16 18:59 Nitroglycerin (Ntg) 0.4 mg Q5M PRN SL Prn Chest Pain 09/04/16 19:00 10/04/16 18:59 Ondansetron HCl (Zofran) 4 mg Q6H PRN IVP Nausea & Vomiting 09/04/16 19:00 10/04/16 18:59 Pantoprazole (Protonix) 40 mg DAILY ORAL 09/05/16 09:00 10/05/16 08:59 09/09/16 09:17 Polyethylene Glycol (Miralax) 17 gm DAILYPRN PRN ORAL Constipation 09/04/16 19:00 10/04/16 18:59 Temazepam (Restoril) 15 mg HSPRN PRN ORAL Insomnia 09/04/16 19:00 09/11/16 18:59 Objective NECK: Showed no JVD. LUNGS: Coarse rhonchi. CARDIOVASCULAR: Shows regular S1 and S2 with no gallop or murmur.The pacemaker in the left subclavian is intact. ABDOMEN: Status post G-tube. EXTREMITIES: Showed no pitting edema. YARIEL SMITH Sep 09, 2016 17:34
--- NOTE | 2016-09-09 23:07 | Diagnostic Imaging Report ---
APPROVED REPORT CPT Code: 42266 Present Symptoms Comments: R/O DVT HTN PACEMAKER DM Risk Factors Bed Rest RIGHT LEG: Venous imaging reveals a patent deep venous system. There is no evidence of thrombus within the femoral, popliteal or tibial segments. The greater saphenous vein is also within normal limits. Doppler indicates normal spontaneous flow within these segments. LEFT LEG: Venous imaging reveals recanalized chronic thrombus in the superficial femoral vein. Large collateral vein noted anterior to the superficial femoral artery. The remainder of the deep venous system is within normal limits. There is no evidence of thrombus in the common femoral, popliteal or calf veins. The greater saphenous vein is also within normal limits. Doppler indicates normal spontaneous flow within these segments. There is no evidence of acute deep vein thrombosis.
[2016-09-10] MEDS ORDERED: TAPAZOLE10 MG GT (13:46)
--- NOTE | 2016-09-10 13:47 | Discharge Summary ---
Discharge Summary Hospital Course Date of Admission Sep 04, 2016 at 14:24 Date of Discharge Sep 09, 2016 at 20:06 Admitting Diagnosis CHEST PAIN HPI Kojo Parker is a 76 year old male who was admitted on Sep 04, 2016 at 14: 24 for Chest Pain Hospital Course dc summary dictated #[id number] Discharge Condition Upon Discharge: improving, stable Discharge Disposition Patient was discharged to SNF/Subacute Facility(03) Discharge Diagnoses: Frankie ([facility]),Juani VENTURA Sep 10, 2016 13:47
--- NOTE | 2016-09-11 03:27 | Discharge Summary 2 SIG ---
DATE OF ADMISSION: 09/04/2016 DATE OF DISCHARGE: 09/09/2016 REASON FOR HOSPITALIZATION: 76-year-old male with past history of a CVA, bipolar, CAD, and pacemaker, was brought by ambulance from a half-way facility where he resides, with a complaint of the chest pain for one day. The patient was asymptomatic in the emergency room, but due to the history of coronary artery disease and pacemaker and high risk for acute coronary syndrome, he was admitted for telemetry for further workup. ADMITTING DIAGNOSES: Include: 1. Chest pain, rule out acute coronary syndrome. 2. Hypertension, 3. Hx of CAD, s/p pacemaker. 4. History of cerebrovascular accident. HOSPITAL COURSE: Cardiology consult and pulmonary consult were requested, The patient was ruled out for myocardial infarction with serial troponin being negative. EKG revealed lateral T-wave inversion and atrially paced rhythm. Per form stripper, likely abnormal repolarization due to the abnormal repolarization of intermittent V pacing. No further chest pain. The patient with a pacemaker implantation done by a form stripper, Dr. Boateng, in the past. Pacemaker was interrogated and showed normal functioning. On telemetry, the patient was noted to have paroxysmal atrial fibrillation. The patient is on amiodarone, beta-cyrus, and aspirin. No need for anticoagulation as per form stripper. Blood pressure was stable with beta-cyrus and ARB. The patient was on strict aspiration precaution, able to tolerate tube feeding. The patient has a history of tracheostomy, which was subsequently closed. Supplemental oxygen and pulmonary toilet provided as needed. No signs of respiratory distress. Chest x-ray revealed no evidence of acute cardiopulmonary disease. Venous duplex on bilateral lower extremities revealed chronic recanalized thrombus in the superficial femoral vein in the left lower extremity. Echocardiogram revealed normal ejection fraction of 60% to 65%, mild left ventricular hypertrophy, no evidence of pericardial effusion, mild mitral regurgitation, and right ventricular systolic pressure of 11. Noted elevated CK and CK-MB, doubt rhabdomyolysis since LFT and renal parameters are both within normal limits. IV fluids x1 provided. CK was down to 698 from initial of 1397 after hydration. Again, renal parameters were stable. Electrolytes stable. Lipid panel within normal limits. Stopped statin due to the elevated CK for now. Elevated TSH was noted, likely secondary to amiodarone. The patient has a history of hyperthyroidism. Tapazole dose was decreased. Recommended to recheck thyroid panel in three to four weeks. DVT and GI prophylaxis provided. The patient was stable for discharge back to half-way facility. DISCHARGE MEDICATIONS: See medication reconciliation list. DISCHARGE DIAGNOSES: 1. Atypical chest pain, 2. St. Kevin pacemaker, status post interrogation ( normal functioning) 3. Paroxysmal atrial fibrillation. 4. Hypertension. 5. Hyperlipidemia. 6. Dysphagia, status post recent percutaneous endoscopic gastrostomy replacement. 7. History of tracheostomy with subsequent closure. 8. History of cerebrovascular accident. 9. Hyperthyroidism with elevated TSH. 10. Coronary artery disease. 11. Bipolar disorder. DISCHARGE INSTRUCTIONS: The patient is discharged to half-way facility. FOLLOWUP: Follow up with medical doctor at the facility. Jose Francisco Parsons DO Juani RangelBellevue HospitalIsaak N.PSuma DR: MELVI JOB#: [id number] CC: JOSE
== END 2016-09-09 20:06 | DRG 198 ==
LOC: ENRESERVTM → ENRESERVDT → EDBD 11:35 → EMR 11:55 → EDBEDREQ 14:14 → 2E 14:24 → EDBEDREQ 15:56
DX: R07.89 Other chest pain (principal); I25.2 Old myocardial infarction; I48.0 Paroxysmal atrial fibrillation; F03.90 Unspecified dementia, unspecified severity, without behavioral disturbance, psychotic disturbance, mood disturbance, and anxiety; R13.10 Dysphagia, unspecified; Z93.1 Gastrostomy status; I10 Essential (primary) hypertension; E78.5 Hyperlipidemia, unspecified; F20.9 Schizophrenia, unspecified; Z95.0 Presence of cardiac pacemaker; K21.9 Gastro-esophageal reflux disease without esophagitis; E11.9 Type 2 diabetes mellitus without complications; I25.10 Atherosclerotic heart disease of native coronary artery without angina pectoris; Z88.0 Allergy status to penicillin; F31.9 Bipolar disorder, unspecified; Z79.4 Long term (current) use of insulin; Z86.73 Personal history of transient ischemic attack (TIA), and cerebral infarction without residual deficits; E05.90 Thyrotoxicosis, unspecified without thyrotoxic crisis or storm
CPT/HCPCS: 36415; 71010; 80048; 80053; 80061; 81003; 82550; 82553; 82962; 83880; 84443; 84484; 85025; 85610; 85730; 86140; 87081; 93005; 93306; 93970; 94664; J1815